=== PATIENT | female | born 1940 | race Caucasian/White ===

== ENCOUNTER → 2021-11-13 12:38 | Outpatient (BNVA) | payer MEDICARE, SELFPAY | PROVIDERS: Visit Provider Family Medicine | DX: R39.9 Unspecified symptoms and signs involving the genitourinary system (principal); N39.0 Urinary tract infection, site not specified | CPT/HCPCS: 81000 ==

== ENCOUNTER 2021-11-24 15:52 | Inpatient (IN) | payer MEDICARE, SELFPAY ==
[2021-11-24] VITALS (9 sets, daily range): BP systolic 99–131; BP diastolic 53–92; PULSE 108–177; RESP 17–33; TEMP 36.7; O2SAT 94–100; BMI 17.1
--- NOTE | 2021-11-24 16:27 | ED_ITS ---
HPI - General Adult General: Chief complaint: Psychiatric Symptoms Stated complaint: SI/ PSYCH EVAL Time Seen by Provider: 11/24/21 15:58 History of Present Illness: HPI: [81]yo patient with a history of insomnia presenting to the emergency room for concerns of worsening insomnia and statements of suicidal ideation. Patient was seen initially earlier by her nurse practitioner for insomnia however nurse procedure told patient that she is unable to prescribe her any Ambien. Patient was upset did not verbalize statements that she wanted to hurt her self and shortness of in the head with a gun. adult probation officer was involved and patient was brought to the emergency room. Arrival, patient was remorseful denies having any suicidal ideation. Patient tells me that she was exasperated and made statements that she did not mean. Patient says that she has 2 children and does not want to hurt herself. On arrival, the patient is AAOx3 and cooperative with my evaluation. No focal co mplaints of chest pain, shortness of breath, palpitations, N/V, focal GI/ complaints. Currently denies SI/HI. No complaints of hallucinations. Onset: chronic Duration: ongoing Location: home Severity: severe Associated symptoms: Deny chest pain, dyspnea, nausea, rash, palpitations or vomiting Review of Systems Const: Reports: fatigue and other (+insomnia); Denies: fever(s) or chills Eyes: Denies: change in vision ENMT: Denies: mouth pain Card: Denies: chest pain or palpitations Resp: Denies: dyspnea or non-productive cough GI: Denies: abdominal pain, nausea, vomiting or diarrhea : Denies: dysuria Musc: Denies: extremity pain Skin/Breast: Denies: rash or new lesions Neuro: Denies: weakness in extremities Psych: Reports: other (Normal mood) Scott/Lymph: Denies: easy bruising PFS ED PFSH: Medical History Insomnia Social History Smoking and tobacco status: former smoker Alcohol intake: never Substance/Drug Use: never Physical Exam Const: COMMON NORMALS: alert HENMT: COMMON NORMALS: atraumatic HEAD & SCALP: atraumatic MOUTH: moist mucous membranes not abnormal Eye: COMMON NORMALS: EOMs intact bilaterally and conjunctivae normal CONJUNCTIVA: Yes conjunctivae normal Neck/C-Spine: COMMON NORMALS: full ROM and supple Resp: COMMON NORMALS: normal respiratory effort and clear to auscultation bilaterally AUSCULTATION: clear to auscultation bilaterally Cardio: OTHER: tachycardia GI: COMMON NORMALS: Soft to palpation and non-tender PALPATION: Yes Soft to palpation Extremity: COMMON NORMALS: full ROM Neuro: SENSORIUM/ORIENTATION: Yes alert MOTOR EXAM: No Abnormal motor strength present and Other motor observations present (no focal motor deficits) Psych: COMMON NORMALS: speech normal SPEECH: Yes normal speech MOOD & AFFECT: Yes euthymic mood Course Vital Signs: Vital signs: Vital Signs Pulse Rate 109 H 11/24/21 18:22 Respiratory Rate 17 11/24/21 18:22 Blood Pressure 112/75 11/24/21 18:22 Pulse Oximetry 94 11/24/21 18:22 MDM - General Adult Medical Decision Making [81]yo patient w/ hx of insomnia for insomnia and requesting for ambien. HDS, exam within normal limit Thoughts are linear and organized, and the patient has no AH/VH, or HI. On arrival, patient is tearful and denies have any suicidal ideation at this time. Patient tells me that she is made those statements out of anger. Clinically the patient displays no overt toxidrome; they are well appearing, with low suspicion for toxic ingestion given history and exam. Symptoms unlikely 2/2 anemia, hypothyroidism, infection, or ICH. Workup: CBC, CMP, Lipase, salicylate/tylenol, TSH/free T4 On reassessment 4:40 PM, patient was noted to be in narrow complex tachycardia at to the 180s-190s. It is unclear whether this is regularly irregular. Given the fact the patient is 81 years old, suspect that this is SVT. We performed shared decision making with patient and discussed risk with patient. Patient received 6 mg adenosine x 2 followed by 12mg of adenosine with mild improvement in heart and heart rate. Patient was noted to be in atrial fibrillation with RVR in the 140s to 160. Patient received multiple doses of metoprolol, IVF, Ativan and Cardizem now with heart rate improved to the 90-110s. I discussed case with Dr. Dixon who tells me that he will reassess patient in the morning to make a determination whether patient needs Esther psych. Disposition: admission Lab Data : 11/24/21 17:39 11/24/21 17:39 Laboratory Results WBC 8.9 10^3/uL (4.0-10.0) 11/24/21 17:39 RBC 4.25 10^6/uL (4.1-5.3) 11/24/21 17:39 Hgb 13.1 g/dL (11.5-15.3) 11/24/21 17:39 Hct 39.9 % (37.0-47.0) 11/24/21 17:39 MCV 93.9 fl (81-99) 11/24/21 17:39 MCH 30.8 pg (28.0-34.0) 11/24/21 17:39 MCHC 32.8 g/dL (30.0-36.0) 11/24/21 17:39 RDW 13.2 % (12.1-15.1) 11/24/21 17:39 Plt Count 337 10^3/cmm (130-400) 11/24/21 17:39 MPV 11.0 fL (7.4-10.4) H 11/24/21 17:39 Neut % (Auto) 61.8 % 11/24/21 17:39 Lymph % (Auto) 18.2 % 11/24/21 17:39 [place] % (Auto) 13.1 % 11/24/21 17:39 Eos % (Auto) 3.7 % 11/24/21 17:39 Baso % (Auto) 0.9 % 11/24/21 17:39 Neut # (Auto) 5.48 10^3/uL (1.8-7.7) 11/24/21 17:39 Lymph # (Auto) 1.6 10^3/uL (0.8-4.8) 11/24/21 17:39 [place] # (Auto) 1.2 10^3/uL (0.2-0.9) H 11/24/21 17:39 Eos # (Auto) 0.3 10^3/uL (0.0-0.8) 11/24/21 17:39 Baso # (Auto) 0.1 10^3/uL (0.0-0.1) 11/24/21 17:39 Nucleated RBC % (auto) 0 % 11/24/21 17:39 Nucleated RBCs # 0.0 /100WBC 11/24/21 17:39 Potassium 4.2 mmol/L (3.5-5.1) 11/24/21 17:39 Chloride 100 mmol/L (98-107) 11/24/21 17:39 Carbon Dioxide 26 mmol/L (22-29) 11/24/21 17:39 Anion Gap 13.2 (5-19) 11/24/21 17:39 BUN 13 mg/dL (8-23) 11/24/21 17:39 Creatinine 0.5 mg/dL (0.5-0.9) 11/24/21 17:39 GFR Calculation Not Reportable 11/24/21 17:39 Glucose 124 mg/dL (65-115) H 11/24/21 17:39 Calculated Osmolality 282 mOsm/kg (285-295) L 11/24/21 17:39 Calcium 9.4 mg/dL (8.5-10.5) 11/24/21 17:39 Total Bilirubin 0.3 mg/dL (0.15-1.2) 11/24/21 17:39 AST 12 U/L (0-32) 11/24/21 17:39 ALT 14 U/L (0-33) 11/24/21 17:39 Alkaline Phosphatase 68 IU/L (35-105) 11/24/21 17:39 Troponin T Baseline 15 ng/L (0-10) H 11/24/21 17:39 Total Protein 6.1 g/dL (6.6-8.7) L 11/24/21 17:39 Albumin 3.3 g/dL (3.5-5.2) L 11/24/21 17:39 Globulin 2.8 g/dL (1.3-4.6) 11/24/21 17:39 Lipase 17 U/L (13-60) 11/24/21 17:39 TSH 2.15 uIU/mL (0.27-4.20) 11/24/21 17:39 Salicylates < 0.3 mg/dL (3-10) L 11/24/21 17:39 Acetaminophen < 5.0 ug/mL (10-30) L 11/24/21 17:39 Discharge Plan Discharge Patient Disposition: Admitted As Inpatient Clinical Impression: Insomnia, Atrial fibrillation with RVR Condition: Stable Discharge Diet: Advance as tolerated Discharge Activity: Increase activity as tolerated Coding Level of Care Code ED Residential Remodeling Subcontractor for Marlen Fwkevin Exam Comprehensive
[2021-11-24] MEDS: adenosine 3 mg/mL SDV 2mL 6 MG IVP ×2 (16:48→16:50)
--- NOTE | 2021-11-24 16:50 | PC.NURSE ---
pt placed on continuous nibp, spo2, and cm
[2021-11-24] MEDS: metoprolol tartrate 1 mg/1 mL SDV 5 mL 5 MG IVP ×2 (16:52→17:05)
[2021-11-24] MEDS: LORazepam 2 mg/mL INJ 1 mL IVP (16:55)
[2021-11-24] MEDS: adenosine 3 mg/mL SDV 2mL 12 MG IVP (16:56)
[2021-11-24] MEDS: metoprolol tartrate 50 mg Tablet PO (17:04)
[2021-11-24] MEDS: sodium chloride 0.9% 1,000 ML 999 ML IV (17:05)
--- NOTE | 2021-11-24 17:17 | ECG_ITS ---
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 Measurements Intervals [place] Rate: 191 P: MS: QRS: 83 QRSD: 77 T: 84 QT: 228 QTc: 407 Interpretive Statements ATRIAL FIBRILLATION WITH RAPID VENTRICULAR RESPONSE POSSIBLE RIGHT VENTRICULAR CONDUCTION DELAY [RSR (QR) IN V1/V2] SEPTAL MYOCARDIAL INFARCTION , OF INDETERMINATE AGE [40+ ms Q WAVE IN V1/V2] ST DEPRESSION, CONSIDER SUBENDOCARDIAL INJURY [0.1+ mV ST DEPRESSION] No previous ECG available for comparison Electronically Signed On 11-25-2021 17:33:00 CDT by Gage Moore M.D. [id number]
--- NOTE | 2021-11-24 17:19 | PC.NURSE ---
PT ARRIVED TO FACILITY. FAINA RN DOING TRIAGE ASSESSMENT. DURING THIS TIME PT'S HEART RATE WAS READING `190'S ON THE MONITOR. THIS NURSE AUSCULTATED PT'S PULSE AT POINT OF MAXIMAL IMPULSE. THIS NURSE IMMEDIATELY PERFORMED AN EKG TO CONFIRM. RESULTS GIVEN TO PHYSICIAN. PHYSICIAN CONFIRMED PT WAS IN SVT. PHYSICIAN GAVE VERBAL ORDERS TO GET 12MG OF ADENOSINE. TIME OUT CALLED AT 1645. 6MG ADENOSINE GIVEN AT 1648. PT HEART RATE DECREASED BUT THEN RESUMED SVT. 1650 PT GIVEN 6MG ADENOSINE. PT HEART RATE DECREASED BUT RESUMED SVT. 1652 PT GIVEN 5MG METOPROLOL. 1655 PT GIVEN 2MG ATIVAN. 1656 PT GIVEN 12MG ADENOSINE. PT HJEART RATE CURRENTLY 130 BP 116/53
[2021-11-24] MEDS: dilTIAZem 5 mg/mL SDV 5 mL 20 MG IVP (18:01)
[2021-11-24 18:22] LABS: Basophils # 0.1 10^3/uL (0.0-0.1); Basophils % 0.9 %; Eosinophils # 0.3 10^3/uL (0.0-0.8); Eosinophils % 3.7 %; Hematocrit 39.9 % (37.0-47.0); Hemoglobin 13.1 g/dL (11.5-15.3); Lymphocytes # 1.6 10^3/uL (0.8-4.8); Lymphocytes % 18.2 %; Mean Corpuscular HGB Conc 32.8 g/dL (30.0-36.0); Mean Corpuscular Hemoglobin 30.8 pg (28.0-34.0); Mean Corpuscular Volume 93.9 fl (81-99); Monocytes # 1.2 10^3/uL (0.2-0.9); Monocytes % 13.1 %; Neutrophils # 5.48 10^3/uL (1.8-7.7); Neutrophils % 61.8 %; Nucleated Red Blood Cells % 0 %; Platelet Count 337 10^3/cmm (130-400); Red Blood Count 4.25 10^6/uL (4.1-5.3); Red Cell Distribution Width 13.2 % (12.1-15.1); White Blood Count 8.9 10^3/uL (4.0-10.0)
[2021-11-24 18:53] LABS: Troponin(5th) Baseline 15 ng/L (0-10)
[2021-11-24 19:01] LABS: Alanine Aminotransferase 14 U/L (0-33); Albumin Level 3.3 g/dL (3.5-5.2); Alkaline Phosphatase 68 IU/L (35-105); Anion Gap 13.2 (5-19); Aspartate Amino Transferase 12 U/L (0-32); Blood Urea Nitrogen 13 mg/dL (8-23); Calcium 9.4 mg/dL (8.5-10.5); Carbon Dioxide 26 mmol/L (22-29); Chloride 100 mmol/L (98-107); Globulin 2.8 g/dL (1.3-4.6); Glucose 124 mg/dL (65-115); Lipase 17 U/L (13-60); Osmolality Calculated 282 mOsm/kg (285-295); Potassium 4.2 mmol/L (3.5-5.1); Thyroid Stimulating Hormone 2.15 uIU/mL (0.27-4.20); Total Bilirubin 0.3 mg/dL (0.15-1.2); Total Protein 6.1 g/dL (6.6-8.7)
[2021-11-24 19:04] LABS: Acetaminophen < 5.0 ug/mL (10-30); Salicylate < 0.3 mg/dL (3-10)
--- NOTE | 2021-11-24 19:04 | PC.NURSE ---
DR. COLUNGA GAVE VERBAL ORDERS TO DISCONTINUE/WASTE REMAINING 10MG OF 20MG ORDER OF CARDIZEM DUE TO PT CONDITION AND VITAL SIGNS.
--- NOTE | 2021-11-24 19:17 | ECG_ITS ---
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 Measurements Intervals [place] Rate: 109 P: ME: QRS: 92 QRSD: 92 T: 81 QT: 316 QTc: 426 Interpretive Statements ATRIAL FIBRILLATION WITH RAPID VENTRICULAR RESPONSE INDETERMINATE AXIS INCOMPLETE RIGHT BUNDLE BRANCH BLOCK [90+ ms QRS DURATION, TERMINAL R IN V1/V2, 40+ ms S IN I/aVL/V4/V5/V6] SEPTAL MYOCARDIAL INFARCTION , OF INDETERMINATE AGE [40+ ms Q WAVE IN V1/V2] No previous ECG available for comparison Electronically Signed On 11-25-2021 17:35:32 CDT by Gage Moore M.D. [id number]
[2021-11-24 20:58] LABS: Troponin 5 2HR 18.13 ng/L (0-10); Troponin 5 2HR Delta 3.13 ABS# (0-10)
[2021-11-24 21:31] LABS: Free T4 Free Thyroxine 1.37 ng/dL (0.82-1.77)
[2021-11-24 21:46] LABS: Sodium 135 mmol/L (136-145)
--- NOTE | 2021-11-24 21:59 | XRR_ITS ---
PROCEDURE INFORMATION: Exam: XR Chest Exam date and time: 11/24/2021 10:05 PM Age: 81 years old Clinical indication: Cardiovascular condition or disease; Congestive heart failure (chf); Cause unknown TECHNIQUE: Imaging protocol: Radiologic exam of the chest. Views: 1 view. COMPARISON: No relevant prior studies available. FINDINGS: Lungs: Left lower lobe focal airspace opacification may reflect atelectasis versus infiltrate, CT could further evaluate this to exclude an underlying mass. Emphysematous changes. Pleural spaces: Unremarkable. No pleural effusion. No pneumothorax. Heart/Mediastinum: Unremarkable. No cardiomegaly. Bones/joints: Unremarkable. XR/XR chest 1V portable [id number] IMPRESSION: 1. Left lower lobe focal airspace opacification may reflect atelectasis versus infiltrate, CT could further evaluate this to exclude an underlying mass. 2. Emphysematous changes.
--- NOTE | 2021-11-24 22:00 | PC.NURSE ---
Transfer Note Patient transferred to ICU from ER via stretcher on oxygen 2LNC, no wounds or skin issues noted at this time. Handoff received from VANESSA Jimenez. Patient oriented to environment and equipment. Covering service notified. Orders reviewed and will continue to monitor. Patient denies any thoughts of self harm/plan to commit suicide. Patient belongings include jacket, top, bra, skirt, socks, underwear and shoes placed at bedside. Patient wearing wedding ring on left hand upon arrival to ICU.
--- NOTE | 2021-11-24 22:04 | PM.HP ---
Providers/Chief Complaint Admitting Physician: Flakita Kraus MD Chief Complaint: SI/ PSYCH EVAL History of Present Illness Turner Badillo is a 81 year old female withoutsignificant PMH who presented to the ER after being brought by the police for tachycardia. Patient states that earlier today she went to her primary care provider's office to be evaluated for insomnia. She has been experiencing insomnia for about 1-1/2 to 2 years. States that this is primarily related to anxiety surrounding the world's events. Relates that over the past 2 years she has been worried about COVID, more recently mass shootings, overall corruption and state of the country and feels that this is why she has not been able to sleep. States that she gets no more than an hour of sleep every night. Does not take any daytime naps. She has tried lifestyle changes such as not drinking any tea or coffee or other energy drinks, does not watch TV, tries to read etc. however nothing seems to have helped her insomnia. She went to her primary care physician's office today with the above complaints and requested sleep medicine . Per her description she was declined short acting benzodiazepines and instead offered long-acting antidepressants due to concerns around her advanced age and risk of falls. She states that this last statement agitated her and she felt hopeless. To describe her hopelessness, she mentioned that she has thought about getting her 's gun and shooting herself since she cannot get any sleep. She states that immediately after she made the statement she regretted it as she is not truly suicidal. She states she was only trying to express her frustration. Police was called to the PCPs office and patient was sent to the emergency room. While in the police car her heart rate was noted to be 190 bpm. Upon arrival in the ER she was noted to have A. fib with RVR for which she received 2 doses of 6 mg adenosine, IV Cardizem pushes after which her heart rate has been ranging between 110 to 120 bpm. Patient states she had palpitations while she was in the police car. Denies any loss of consciousness or dizziness. Did have a central chest pressure at that time and found herself taking some deep breaths. She denies any past known history of atrial fibrillation. States that she has had central chest pressure but has attributed it to acid reflux in the past. Denies any dyspnea syncope PND. Denies any known past cardiac history. No history of hypertension diabetes. She is a smoker who quit several years ago. No history of alcohol intake in the last 5 years. No known hypo or hyperthyroidism. She uses Benadryl occasionally to help her sleep, however states she has not taken any in the last 48 hours. Denies any fever chills cough. Treated for a UTI 1 week ago with Macrobid. Currently has no symptoms of dysuria. Review of Systems General: Reports: 10 or more systems reviewed and unremarkable except in HPI and below Const: Denies: fever(s), chills or body aches Eyes: Denies: change in vision, blurry vision or photophobia ENMT: Reports: hoarseness; Denies: throat pain, enlarged tonsils, odynophagia or nasal congestion Card: Reports: palpitations; Denies: chest pain, irregular heart rhythm, edema, swelling of feet/ankles, lightheadedness, pre-syncope, dyspnea on exertion or orthopnea Resp: Denies: dyspnea, productive cough, non-productive cough, wheezing, stridor, pain on inspiration, change in phlegm color, hemoptysis or chest congestion GI: Denies: abdominal pain, nausea, vomiting, hematemesis, coffee ground emesis, dysphagia, heartburn, diarrhea, constipation, GI cramping, change in stool character, hematochezia or melena : Denies: flank pain, difficulty voiding, dysuria, urinary frequency, urinary urgency, urinary hesitancy or hematuria Musc: Denies: neck pain, back pain, extremity pain, joint swelling, joint warmth or deformity Neuro: Denies: headache(s), numbness in extremities, weakness in extremities, sensory changes, difficulty walking, frequent falls, dizziness, vertigo, behavioral changes, Slurred speech present or seizure-like activity Psych: Reports: anxiety; Denies: depression, suicidal ideation or homicidal ideation Endo: Denies: polyuria, polydipsia, tired all the time, cold intolerance or hot flashes Scott/Lymph: Denies: easy bruising or easy bleeding Medications/Allergies Home Medications Medication Instructions Recorded Confirmed Last Taken Type pcexclzzireb-bojwwpje-qpnvmv tablet 1 tab PO DAILY 11/24/21 11/24/21 11/24/21 History Allergies Allergy/AdvReac Type Severity Reaction Status Date / Time Penicillins Allergy ALGY-Rash Verified 11/24/21 18:29 PFSH Acute PFSH: Medical History Insomnia Social History Smoking and tobacco status: former smoker Alcohol intake: never Substance/Drug Use: never Vitals/I&O/Wt Last Vital Signs Pulse 108 H 11/24/21 21:31 Resp 21 H 11/24/21 21:31 BP 131/58 11/24/21 21:31 Pulse Ox 98 11/24/21 21:31 11/24/21 11/24/21 11/24/21 06:59 14:59 22:59 Intake Total 1000 / 1000 Balance 1000 / 1000 Physical Exam Narrative: GEN: Awake, alert and oriented, no acute distress CVS: S1S2 N RS: CTA B/L Abd: Soft, nt/nd , bs+ 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 Currently on a 96 hr hold. 1:1 sitter at bedside. Psych consult placed from ER, will await recommendations Attestations Medical Necessity Statement*: anticipate >2midnight admission for SI, psychiatry assessment, 96 hr hold, A fib with RVR new onset, rate control Coding Level of Care Code Acute Director Telemetry for Chg Fwd Diagnoses Atrial fibrillation with RVR I48.91 Insomnia G47.00
[2021-11-24] MEDS: dilTIAZem 30 mg Tablet PO (22:30)
[2021-11-24] MEDS: enoxaparin 40 mg/0.4 mL Syringe SUBCUT (22:31)
[2021-11-24 22:35] LABS: Magnesium 1.9 mg/dL (1.7-2.3); NT Pro B Type Natriuretic Pept 1760 pg/mL (0-450)
--- NOTE | 2021-11-25 00:14 | PC.NURSE ---
New Orders Dr. Kraus at bedside, gave verbal orders to administer Xanax 0.25mg PO ONCE.
[2021-11-25] MEDS: ALPRAZolam 0.5 mg Tablet 0.25 MG PO (00:52)
--- NOTE | 2021-11-25 01:34 | USCV_ITS ---
Turner Badillo Age: 81 Gender: F : 1940 Exam Date: 11/25/2021 01:48 Ordering Phys: Flakita Kraus MD Technologist: JAY Exam Location: [facility] [place] Indication: new onset atrial fibrillation. No hx cardiac intervention per patient. BP: 105 / 75 HR: 100 Rhythm: Atrial fibrillation Technical Quality: Adequate MEASUREMENTS (Male / Female) Normal Values 2D ECHO LV Diastolic Diameter PLAX 4.1 cm 4.2 - 5.9 / 3.9 - 5.3 cm LV Systolic Diameter PLAX 2.5 cm IVS Diastolic Thickness 1.0 cm 0.6 - 1.0 / 0.6 - 0.9 cm IVS Systolic Thickness 1.6 cm LVPW Diastolic Thickness 1.3 cm 0.6 - 1.0 / 0.6 - 0.9 cm LVPW Systolic Thickness 1.5 cm LVOT Diameter 1.7 cm LV Ejection Fraction 2D Teich 69.8 % LV Ejection Fraction MOD 2C 67.4 % LV Ejection Fraction 2C AL 67.2 % LA Diameter 4.2 cm LA Width 4.7 cm LA Height 6.0 cm RA Width 4.7 cm RA Height 5.8 cm Aorta at Sinotubular Diameter 3.0 cm M-MODE Aortic Annulus Diameter 2.9 cm LA Ao Ratio MM 1.5 MV E Point Septal Separation 0.6 cm DOPPLER AV Peak Velocity 114.0 cm/s LVOT Peak Velocity 65.0 cm/s AV Area Cont Eq vti 1.3 cm squared AV Area Cont Eq pk 1.3 cm squared MV Area PHT 5.0 cm squared MV E' Velocity 44.0 cm/s Mitral E to MV E' Ratio 16.5 Mitral E to LV E' Lateral Ratio 21.0 Mitral E to LV E' Septal Ratio 13.8 TR Peak Velocity 227.6 cm/s TR Peak Gradient 20.7 mmHg TV Peak E Velocity 53.0 cm/s Right Atrial Pressure 5.0 mmHg Pulmonary Artery Systolic Pressu 25.7 mmHg PV Peak Velocity 71.0 cm/s FINDINGS Left Ventricle Normal left ventricular size. LV systolic function is mildly reduced with EF of 45-50%. Mild global hypokinesis. Diastolic function is indeterminate because of atrial fibrillation. Right Ventricle The right ventricle is normal in size and function. Right Atrium The right atrium is dilated Left Atrium The left atrium is dilated Mitral Valve Mild mitral annular calcification. Mild mitral regurgitation. Aortic Valve Structurally normal aortic valve without significant sclerosis or stenosis. There is mild to moderate aortic regurgitation. Tricuspid Valve Structurally normal tricuspid valve without significant stenosis. Mild tricuspid regurgitation. Pulmonary artery systolic pressure is normal. Pulmonic Valve Trace pulmonic regurgitation Pericardium Small pericardial effusion Aorta Normal ascending aorta dimension. IVC CONCLUSIONS LV systolic function is mildly reduced with EF 45-50%. Diastolic function is indeterminate because of atrial fibrillation. Biatrial enlargement Mild mitral annular calcification is seen. Mild mitral regurgitation. Mild to moderate aortic regurgitation. Mild tricuspid regurgitation. Trace pulmonic regurgitation Small pericardial effusion No comparison studies are available Gage Moore MD (Electronically Signed) Final Date: 25 November 2021 11:07 S
[2021-11-25 02:24] LABS: D Dimer 1.56 ug/mIFEU (0-0.59)
[2021-11-25 02:30] LABS: Alanine Aminotransferase 19 U/L (0-33); Alkaline Phosphatase 63 IU/L (35-105); Anion Gap 11.9 (5-19); Aspartate Amino Transferase 18 U/L (0-32); Blood Urea Nitrogen 12 mg/dL (8-23); Calcium 8.8 mg/dL (8.5-10.5); Carbon Dioxide 23 mmol/L (22-29); Chloride 101 mmol/L (98-107); Globulin 2.6 g/dL (1.3-4.6); Glucose 126 mg/dL (65-115); Osmolality Calculated 275 mOsm/kg (285-295); Potassium 3.9 mmol/L (3.5-5.1); Sodium 132 mmol/L (136-145); Total Bilirubin 0.3 mg/dL (0.15-1.2); Total Protein 5.6 g/dL (6.6-8.7)
[2021-11-25] MEDS: dilTIAZem 30 mg Tablet PO ×2 (05:22→09:06)
--- NOTE | 2021-11-25 05:55 | PC.NURSE ---
Shift Summary Patient had an uneventful shift-rested in bed throughout the night and remains alert/oriented x4 on room air. No wounds or skin issues noted at this time. No complaints of brooks overnight. Ambulated to bathroom once with nurse assist. Patient continues to deny any feelings and/or thoughts of self harm.
[2021-11-25 06:00] VITALS: PULSE 108; BMI 16.9
[2021-11-25] MEDS: pantoprazole DR 40 mg Tablet PO (09:05)
[2021-11-25] MEDS: FUROsemide 20 mg Tablet PO (10:29)
[2021-11-25] MEDS: escitalopram 10 mg Tablet PO (10:29)
[2021-11-25] MEDS: potassium chloride ER 20 mEq Tablet 40 MEQ PO (10:30)
[2021-11-25 10:52] LABS: Amphetamines Screen Urine Negative (Negative); Barbiturates Screen Urine Negative (Negative); Benzodiazepines Screen Urine Positive (Negative); Cocaine Screen Urine Negative (Negative); Opiate Screen Urine Negative (Negative); PCP Screen Urine Negative (Negative); THC Screen Urine Positive (Negative)
[2021-11-25 12:21] LABS: Chol HDL Ratio 5.31 mg/dL (0.0-4.40); Cholesterol 138 mg/dL (0-200); HDL Cholesterol 26 mg/dL (60-100); LDL Cholesterol Calculated 97 mg/dL (50-129); Triglycerides 76 mg/dL (0-150); VLDL Cholestrol Calculation 15 mg/dL (0-30)
[2021-11-25 12:25] LABS: Estmated Average Glucose 143; Hemoglobin A1C 6.6 % (4.0-6.0)
[2021-11-25 12:28] LABS: Urine Appearance SL Hazy (CLEAR); Urine Color Yellow (Yellow)
[2021-11-25 12:29] LABS: Add Urine Culture? Yes; Add Urine Microscopic? YES; Bacteria Urine 4+ /hpf; Bilirubin Urine Neg (Negative); Blood Urine Neg (Negative); Glucose Urine UA Norm (Normal); Ketones Urine Negative (Negative); Leukocyte Esterase Urine Negative (Negative); Nitrate Urine Positive (Negative); Protein Urine Neg (Negative); RBC Urine 0-4 /hpf (0-2); Squamous Epithelial Cell Urine 0-4 /hpf (0-5); Urobilinogen Urine Norm (Negative); WBC Urine 0-4 /hpf (0-5); pH Urine 6 (5-7)
[2021-11-25 14:00] VITALS: PULSE 97
--- NOTE | 2021-11-25 14:39 | P.PN_ITS ---
Subjective Subjective: Admitted overnight. H&P and labs appreciated. On examination sleeping comfortably in bed. States she had a good night sleep. at bedside. Patient denies any suicidal or homicidal ideation. States she made the statement yesterday to her nurse practitioner because she was frustrated and irritated. States she lives with her 2 children and will never think of harming herself. Denies any nausea, vomiting, headache. As per and patient herself she has been anxious about COVID for over 2 years but worsening for last 5 to 6 months. 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 fib. Cardizem 60 mg every 8 hourly. TSH normal. Jagdeep vas score?4. Patient needs anticoagulation for stroke prevention. Discussed in detail. Patient thinks that she is in A. fib because she was anxious. She is open to the idea of anticoagulation but for now wants to confirm that she has persistent A. fib. Discussed possible need of event monitor as an outpatient. Patient is agreeable. Status: Acute (2) Cardiomyopathy: Echocardiogram done shows an EF of 40 to 45% with global LV hypokinesia, mild MR, mild to moderate aortic regurgitation, mild TR. Etiology most likely nonischemic but cannot rule out ischemic etiology for now. Patient will need a Lexiscan stress test. N.p.o. after midnight. Check A1c, lipid panel. Status: Acute (3) Systolic heart failure: Slightly decompensated. Check proBNP. Oral Lasix 20 mg once. Oral potassium 40 mEq. Strict input output charting. Status: Acute (4) Insomnia: Ambien 5 mg as needed. Status: Acute (5) Anxiety: As per patient chronic. Denies any suicidal or homicidal ideation. Agreeable to start on SSRI. Start on Lexapro 10 mg daily. Status: Acute Plan Suicidal ideation: events as noted above. Currently on a 96 hr hold as per ER on admission. Awaiting psychiatry evaluation. One-to-one sitter. Currently denies any suicidal or homicidal ideation. Full code. Cardiac diet. Protonix for PUD prophylaxis. Lovenox for DVT prophylaxis. Attestations Medical Necessity Statement*: Requires further hospitalization for management and further evaluation of atrial fibrillation with rapid ventricular response, cardiomyopathy, acute systolic heart failure, 96-hour hold because of possible suicidal ideation while psychiatric evaluation is awaited. Time Spent in Patient Care: Greater than 35 minutes Coding Level of Care Code Acute Supervisor [employer] for Marlen Richard Diagnoses Atrial fibrillation with RVR I48.91 Insomnia G47.00 Anxiety F41.9 Systolic heart failure I50.20 Cardiomyopathy I42.9
[2021-11-25] MEDS: dilTIAZem 60 mg Tablet PO ×2 (15:20→21:12)
--- NOTE | 2021-11-25 16:33 | PC.NURSE ---
Pt was seen by Dr. Salinas and he told this nurse that 1:1 orders could be discontinued. This was discussed with Dr. Duran and 1:1 order was changed. Pt has not had suicidal ideations this shift.
--- NOTE | 2021-11-25 17:35 | W.PM.PSYCONS ---
Providers/Reason for Consult Consulting Physican/Specialty*: Jai Salinas MD Reason for Consult*: anxiety Attending Physician: Prasanna Duran MD Psych Consult HPI History of Present Illness Turner Badillo is a 81 year old female admitted for atrial fibrillation and reports that she inappropriately had made statement of hurting herself if she did not get any sleep improvement. She endorsed sleep continuity disruption for 1 1/2 years and reports that she has been upset and anxious about the problems of the world, recent [place] events, recent legal events. Patient reports no depressed mood. She reports no past or current history of depression. She reports improved sleep last night. Meds Home Medications and Allergies Home Medications Medication Instructions Recorded Confirmed Last Taken Type pczgclqydwaw-rtulggwu-fwcfsl tablet 1 tab PO DAILY 11/24/21 11/24/21 11/24/21 History Allergies Allergy/AdvReac Type Severity Reaction Status Date / Time Penicillins Allergy ALGY-Rash Verified 11/24/21 18:29 Current Medications Current Medications Generic Name Dose Route Start Last Admin Trade Name Josep PRN Reason Stop Dose Admin Diltiazem HCl 60 mg 11/25/21 15:00 11/25/21 15:20 Diltiazem 60 Mg Tablet PO 60 mg TID DEWEY Administration Enoxaparin Sodium 40 mg 11/24/21 22:00 11/24/21 22:31 Enoxaparin 40 Mg/0.4 Ml Syringe SUBCUT 40 mg Q24H DEWEY Administration Escitalopram Oxalate 10 mg 11/25/21 10:25 11/25/21 10:29 Escitalopram 10 Mg Tablet PO 10 mg DAILY DEWEY Administration Pantoprazole Sodium 40 mg 11/25/21 09:00 11/25/21 09:[address] 40 Mg Tablet PO 40 mg DAILY DEWEY Administration PFSH NPU PFSH: Medical History Insomnia Social History Smoking and tobacco status: former smoker Alcohol intake: never Substance/Drug Use: never Mental Status Exam MSE Comments: She is a casually dressed pleasant white female good eye contact appeared her stated age her mood was described as okay her affect was normal in regards to range her thought process was linear logical. Her thought content showed no evidence of active homicidal or suicidal ideation she did not appear to be responding to internal stimuli there is no evidence of delusional thinking. Her attention span appeared fair her insight was partial. her judgment was fair at this time Vitals/I&O/Wt Last Vital Signs Temp 98.0 F 11/24/21 22:17 Pulse 97 11/25/21 14:00 Resp 33 H 11/24/21 22:17 BP 124/92 11/24/21 22:17 Pulse Ox 100 11/24/21 22:17 11/25/21 11/25/21 11/25/21 06:59 14:59 22:59 Intake Total 200 / 1200 600 / 600 Balance 200 / 1200 600 / 600 Weight last 48 hrs Weight 47.627 kg Weight 48.166 kg Data NPU : 11/24/21 17:39 11/25/21 01:45 A&P Assessment and plan (1) Anxiety: Status: Acute (2) Systolic heart failure: Status: Acute (3) Cardiomyopathy: Status: Acute (4) Atrial fibrillation with RVR: Status: Acute (5) Insomnia: Status: Acute Plan 1. Recommend CBT for insomnia, no side effects. 2. Recommend use of lexapro as prescribed as decrease in overall anxiety may indirectly aid in her chronic insomnia 3. Recommend compliance with medications for her AF as this may also indirectly improve her problems with insomnia 4. She may benefit initially from low dose ambien 2.5mg/5mg for a small period of time on outpatient basis, reiterated to patient that this is not intended for technician terminal and repeater use. Attestations NPU Medical Necessity Statement*: Continue medical treatment, no need for further psychiatric input. Discharge home when stable Coding Level of Care Code Established Pt Acute Actuarial Trainee for Chg Fwd Patient Type Established History Problem Focused Exam Problem Focused Medical Decision Making Straight Forward Diagnoses Anxiety F41.9 Systolic heart failure I50.20 Cardiomyopathy I42.9 Atrial fibrillation with RVR I48.91 Insomnia G47.00
[2021-11-25 20:00] VITALS: PULSE 91; O2SAT 91
[2021-11-25] MEDS: enoxaparin 40 mg/0.4 mL Syringe SUBCUT (21:12)
[2021-11-25] MEDS: zolpidem 5 mg Tablet PO (21:12)
[2021-11-25 22:00] VITALS: PULSE 96
[2021-11-26 05:14] LABS: Alanine Aminotransferase 17 U/L (0-33); Alkaline Phosphatase 63 IU/L (35-105); Anion Gap 15.6 (5-19); Aspartate Amino Transferase 15 U/L (0-32); Blood Urea Nitrogen 14 mg/dL (8-23); Calcium 8.5 mg/dL (8.5-10.5); Carbon Dioxide 23 mmol/L (22-29); Chloride 102 mmol/L (98-107); Globulin 2.8 g/dL (1.3-4.6); Glucose 107 mg/dL (65-115); Osmolality Calculated 283 mOsm/kg (285-295); Potassium 4.6 mmol/L (3.5-5.1); Sodium 136 mmol/L (136-145); Total Bilirubin 0.4 mg/dL (0.15-1.2); Total Protein 5.8 g/dL (6.6-8.7)
[2021-11-26 06:00] VITALS: PULSE 117
--- NOTE | 2021-11-26 06:55 | PC.NURSE ---
Shift Summary Patient had an uneventful shift, remains alert/oriented on room air. No complaints of pain overnight. Patient ambulates to bathroom with standby assist. No wounds/skin issues noted at this time.
[2021-11-26 07:24] VITALS: BP 103/89; PULSE 117; RESP 18; TEMP 37.1
[2021-11-26] MEDS: pantoprazole DR 40 mg Tablet PO (08:44)
[2021-11-26] MEDS: dilTIAZem 60 mg Tablet PO ×4 (08:44→23:40)
[2021-11-26] MEDS: escitalopram 10 mg Tablet PO (08:44)
--- NOTE | 2021-11-26 10:33 | PC.CHAP ---
Pastoral Care Encounter/Spiritual Assessment Type of Contact [] Declined director news visit [] Patient/Family/Request visit [] Outpatient visit [] Follow-up visit [] Physician referral [] Code/Alert [x] Routine visit [] Staff referral [] Actively dying [] Patient sleeping [x] Family support [] [] Out of room [] Palliative care [] [] Receiving care in room [] Pre-surgical visit [] Trauma [] Long length of stay [x] ICU visit [x] Other: Anglican.. prayed outside of room Relational/Emotional Strength [] Patient feels connected with others/family/visitors/staff [] Distress [] Loneliness/isolation [] Abandonment Spirituality of Patient [] Person of Elaina [] Attends Jehovah'S Witness of their Elaina [] Believes in Prayer [] Reads Bible or Mandaen materials [] There are Spiritual issues to be addressed Clinical Psychology Professor Interventions [x] Prayer [] Active listening [] Non-anxious presence [] Spiritual/emotional support [] Crisis/trauma care [] Spiritual counseling [] Bereavement support [] Provided bereavement packet [] Provided Bible/devotional materials [] Provided toy/stuffed animal, coloring book to patient or family member [] Provided Communion [] Anointing/[employer] [] Salvation [x] Completed spiritual assessment [] Other: Impact on Illness or Injury [] Angry [] Fearful [] Anxious [] Often cries [] Exhaustion [] Unable to work [] Unable to attend jehovah's witness [] Unable to walk/stand [] Unable to read [] Unable to drive [] Unable to eat/drink [] Unable to sleep [] Unable to be with family [] Patient intubated [] Other: Summary Time spent with patient
[2021-11-26] MEDS: levoFLOXacin 500 mg Tablet PO (10:34)
--- NOTE | 2021-11-26 13:48 | P.PN_ITS ---
Subjective Subjective: Overnight patient's heart rate has remained more than 100. Today morning at rest patient's heart rate has been ranging between 110-125 bpm. She states she slept overnight but not as good as first night. Denies any nausea, vomiting, headache. Today she tells me she has been having occasional re trosternal chest heaviness and pain even at home on minimal exertion occasionally. She is not able to differentiate if it is due to his chest heaviness or chest palpitations. 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 fib. Cardizem 60 mg every 8 hourly. TSH normal. Jagdeep vas score?4. Patient needs anticoagulation for stroke prevention. Discussed in detail. Patient thinks that she is in A. fib because she was anxious. She is open to the idea of anticoagulation but for now wants to c onfirm that she has persistent A. fib. Discussed possible need of event monitor as an outpatient. Patient is agreeable. Status: Acute (2) Cardiomyopathy: Echocardiogram done shows an EF of 40 to 45% with global LV hypokinesia, mild MR, mild to moderate aortic regurgitation, mild TR. Etiology most likely nonischemic but cannot rule out ischemic etiology for now. Patient will need a Lexiscan stress test. N.p.o. after midnight. Check A1c, lipid panel. Status: Acute (3) Systolic heart failure: Slightly decompensated. Check proBNP. Oral Lasix 20 mg once. Oral potassium 40 mEq. Strict input output charting. Status: Acute (4) Insomnia: Ambien 5 mg as needed. Status: Acute (5) Anxiety: As per patient chronic. Denies any suicidal or homicidal ideation. Agreeable to start on SSRI. Start on Lexapro 10 mg daily. Status: Acute Plan Suicidal ideation: events as noted above. Currently on a 96 hr hold as per ER on admission. Awaiting psychiatry evaluation. One-to-one sitter. Currently denies any suicidal or homicidal ideation. Full code. Cardiac diet. Protonix for PUD prophylaxis. Lovenox for DVT prophylaxis. Plan for the day: Increase Cardizem to 60 mg every 6. If heart rate remains more than 110 can give 10 mg IV push. Will dose Cardizem accordingly. Continue with Lexapro. Start on Xanax 0.5 at bedtime scheduled. Plan for Lexiscan tomorrow morning. N.p.o. after midnight. Follow-up urine culture. For now start on Levaquin 500 mg daily for 5 days. Discussed in detail with patient and patient's at bedside. They are both agreeable. 96-hour removed. Appreciate psychiatry recommendations. No active suicidal or homicidal ideation. Transfer to CSU. Attestations Medical Necessity Statement*: Requires further hospitalization for management of A. fib with RVR, cardiomyopathy while etiology is determined. Time Spent in Patient Care: Greater than 35 minutes Coding Level of Care Code Acute Pattern Stamper for [facility] Fwkevin Diagnoses Atrial fibrillation with RVR I48.91 Cardiomyopathy I42.9 Systolic heart failure I50.20 Insomnia G47.00 Anxiety F41.9
[2021-11-26] MEDS: ondansetron 2 mg/ML SDV 2 mL 4 MG IVP (16:24)
[2021-11-26 19:46] VITALS: BP 102/59; PULSE 118; RESP 20; TEMP 36.7; O2SAT 93
[2021-11-26 22:00] VITALS: PULSE 71
--- NOTE | 2021-11-26 22:15 | PC.NURSE ---
Xanax and Metoprolol Patient's blood pressure MAP ranging from 65-66, current blood pressure 100/55 MAP 66 with a HR ranging from 80s-110s. Cardizem scheduled Q6hr, new 25 mg metoprolol PO dose due at 2100. Dr. rKaus contacted and order received to give cardizem as scheduled and to hold metoprolol. Medication held. Patient requested to have xanax bedtime dose closer to 2230 to help her rest throughout night. Receiving nurse aware of request.
[2021-11-26] MEDS: enoxaparin 40 mg/0.4 mL Syringe SUBCUT (22:21)
[2021-11-26 22:38] VITALS: BP 100/55; PULSE 88; RESP 20
[2021-11-26] MEDS: ALPRAZolam 0.5 mg Tablet PO (22:38)
--- NOTE | 2021-11-26 22:41 | PC.NURSE ---
Transfer Patient transferred to CSU bed 277-1 via wheelchair. All patient belongings placed at bedside after transfer. Receiving nurse in room and all vitals stable.
[2021-11-27] VITALS: BP 102/59; PULSE 94; RESP 16; TEMP 36.7; O2SAT 93
[2021-11-27 00:13] VITALS: PULSE 83
--- NOTE | 2021-11-27 05:22 | PC.NURSE ---
patient refusing morning meds at this time stating, I am an old lady and just want to sleep in this morning.
--- NOTE | 2021-11-27 06:03 | PC.NURSE ---
Patient very upset that she has had to share a room with another patient this night. Patient stated, I am checking myself out today. Patient is upset about the roommates bipap continuously alarming.
[2021-11-27 06:35] VITALS: PULSE 0
--- NOTE | 2021-11-27 07:34 | PC.NURSE ---
pt off floor for stress test
[2021-11-27 07:35] LABS: Basophils # 0.1 10^3/uL (0.0-0.1); Basophils % 0.9 %; Eosinophils # 0.3 10^3/uL (0.0-0.8); Eosinophils % 3.3 %; Hematocrit 35.6 % (37.0-47.0); Hemoglobin 11.9 g/dL (11.5-15.3); Lymphocytes # 1.4 10^3/uL (0.8-4.8); Lymphocytes % 18.6 %; Mean Corpuscular HGB Conc 33.4 g/dL (30.0-36.0); Mean Corpuscular Hemoglobin 31.2 pg (28.0-34.0); Mean Corpuscular Volume 93.2 fl (81-99); Mean Platelet Volume 11.6 fL (7.4-10.4); Monocytes % 13.4 %; Neutrophils % 61.7 %; Nucleated Red Blood Cells % 0 %; Platelet Count 245 10^3/cmm (130-400); Red Blood Count 3.82 10^6/uL (4.1-5.3); Red Cell Distribution Width 13.2 % (12.1-15.1); White Blood Count 7.5 10^3/uL (4.0-10.0)
[2021-11-27 07:51] LABS: Alanine Aminotransferase 16 U/L (0-33); Albumin Level 3.3 g/dL (3.5-5.2); Alkaline Phosphatase 70 IU/L (35-105); Aspartate Amino Transferase 13 U/L (0-32); Blood Urea Nitrogen 10 mg/dL (8-23); Calcium 8.6 mg/dL (8.5-10.5); Carbon Dioxide 24 mmol/L (22-29); Chloride 100 mmol/L (98-107); Globulin 2.6 g/dL (1.3-4.6); Glucose 107 mg/dL (65-115); Osmolality Calculated 282 mOsm/kg (285-295); Sodium 136 mmol/L (136-145); Total Bilirubin 0.3 mg/dL (0.15-1.2); Total Protein 5.9 g/dL (6.6-8.7)
--- NOTE | 2021-11-27 07:54 | ECG_ITS ---
[facility] Test Date: 2021-11-27 Pat Name: Turner Badillo Department: Room: 277 Gender: Female Major Assembler: Zoila Marquez : 1940 Requested By: Prasanna Duran Order Number: [id number] Nelly MD: Gage Moore M.D. Interpretive Statements NAME OF STUDY: LEXISCAN SESTAMIBI STRESS TEST INDICATION: [Chest Pain, ] Procedure: At the baseline, the blood pressure was 103/58 mmHg with a heart rate of 124 bpm. The electrocardiogram showed atrial fibrillation with RVR. No significant ST-T wave changes. The Lexiscan was infused over a period of 20 seconds. A total of 0.4 mg of Lexiscan was infused. The stress phase was continued for a total of 5 minutes. Heart rate was at the end of stress phase was 115 bpm and a blood pressure of 108/56 mmHg. The EKG at the peak infusion revealed atrial fibrillation with RVR. No significant ST-T wave changes. Sestamibi was injected 20 seconds after the Lexiscan infusion. Blood pressure at the end of recovery phase was 103/56 mmHg with a heart rate of 127 bpm. Conclusion: 1. Normal EKG response to Lexiscan infusion 2. No Lexiscan induced chest pain or cardiac arrhythmia. 3. Normal blood pressure and heart rate response. 4. Sestamibi/sestamibi perfusion scan pending; see separate report. Electronically Signed On 12-06-2021 12:30:56 CDT by Gage Moore M.D. [id number]
[2021-11-27] MEDS: regadenoson 0.4 Mg/5 ml Syringe IVP (08:04)
[2021-11-27 08:05] VITALS: BP 108/56; PULSE 115
--- NOTE | 2021-11-27 09:09 | NMCV_ITS ---
NM farnaz perf SPECT r/s* [id number] Turner Badillo Age: 81 Gender: F : 1940 Exam Date: 11/27/2021 07:14 Ordering Phys: Prasanna Duran MD Technologist: CARSON Lance Exam Location: [facility] Indications: CHEST PAIN STRESS TEST Please see separate stress test report in [facility] for full findings IMAGE PROTOCOL Rest/Stress 1 Radiopharmaceutical Dose (mCi) Administration Site Administered by Rest: Tc-99m 10.9 IV CARSON Early Sestamiisela Stress:Tc-99m 32.6 IV CARSON Early Sestamiisela Rest: 27-Nov-2021 60 Discovery 630 Stress: 27-Nov-2021 30 Discovery 630 Images obtained in supine and prone position. Images obtained in supine and prone position. SPECT RESULTS Technical Quality: Excellent Raw Data Analysis: Normal Image Corrections: No attenuation or motion correction applied Summed Stress Score: 1 Summed Rest Score: 3 Summed Difference Score: 1 PERFUSION FINDINGS There is a small sized perfusion defect noted in the apical wall that improves on stress images. This is likely secondary to attenuation artifact. FUNCTIONAL RESULTS (calculated via Gated SPECT) Stress Image LV EF (%): 67 Stress EDV (mL):55 TID: 0.97 Stress ESV (mL):18 FUNCTIONAL FINDINGS: There is normal left ventricular systolic function. IMPRESSIONS 1. Normal myocardial perfusion imaging. No evidence of ischemia. Attenuation artifact is seen in the apical wall 2. LV systolic function is normal Gage Moore MD (Electronically Signed) Final Date: 27 November 2021 09:51 S
--- NOTE | 2021-11-27 09:37 | PC.NURSE ---
contacted provider with concerns of blood pressure and medication to be given at this time instructions to stop metoprolol and give cardizem now received
[2021-11-27] MEDS: levoFLOXacin 500 mg Tablet PO (09:41)
[2021-11-27] MEDS: escitalopram 10 mg Tablet PO (09:41)
[2021-11-27] MEDS: dilTIAZem 60 mg Tablet PO ×2 (09:43→11:47)
[2021-11-27 11:20] VITALS: BP 91/59; PULSE 118; RESP 18; TEMP 36.7; O2SAT 96
--- NOTE | 2021-11-27 12:33 | PM.DCS ---
Discharge Providers Date of Admission: 11/24/21 19:19 Date of Discharge: November 27, 2021 Attending Provider at Admission: Flakita Kraus MD Attending Provider at Discharge: Prasanna Duran MD Consults: Psychiatric: Dr. Salinas Diagnoses at Discharge Discharge Diagnosis (1) Atrial fibrillation with RVR: Status: Acute (2) Cardiomyopathy: Status: Acute (3) Systolic heart failure: Status: Acute (4) Insomnia: Status: Acute (5) Anxiety: Status: Acute Reason for Visit Reason for Visit: SI/ PSYCH EVAL Brief History: History as per HPI: Turner Badillo is a 81 year old female withoutsignificant PMH who presented to the ER after being brought by the police for tachycardia. Patient states that earlier today she went to her primary care provider's office to be evaluated for insomnia.? She has been experiencing insomnia for about 1-1/2 to 2 years.? States that this is primarily related to anxiety surrounding the world's events.? Relates that over the past 2 years she has been worried about COVID, more recently mass shootings, overall corruption and state of the country and feels that this is why she has not been able to sleep.? States that she gets no more than an hour of sleep every night.? Does not take any daytime naps.? She has tried lifestyle changes such as not drinking any tea or coffee or other energy drinks, does not watch TV, tries to read etc. however nothing seems to have helped her insomnia.? She went to her primary care physician's office today with the above complaints and requested sleep medicine .? Per her description she was declined short acting benzodiazepines and instead offered long-acting antidepressants due to concerns around her advanced age and risk of falls.? She states that this last statement agitated her and she felt hopeless.? To describe her hopelessness, she mentioned that she has thought about getting her 's gun and shooting herself since she cannot get any sleep.? She states that immediately after she made the statement she regretted it as she is not truly suicidal.? She states she was only trying to express her frustration. Police was called to the PCPs office and patient was sent to the emergency room.? While in the police car her heart rate was noted to be 190 bpm.? Upon arrival in the ER she was noted to have A. fib with RVR for which she received 2 doses of 6 mg adenosine, IV Cardizem pushes after which her heart rate has been ranging between 110 to 120 bpm.? Patient states she had palpitations while she was in the police car.? Denies any loss of consciousness or dizziness.? Did have a central chest pressure at that time and found herself taking some deep breaths.? She denies any past known history of atrial fibrillation.? States that she has had central chest pressure but has attributed it to acid reflux in the past.? Denies any dyspnea syncope PND.? Denies any known past cardiac history.? No history of hypertension diabetes.? She is a smoker who quit several years ago.? No history of alcohol intake in the last 5 years.? No known hypo or hyperthyroidism.? She uses Benadryl occasionally to help her sleep, however states she has not taken any in the last 48 hours. Denies any fever chills cough.? Treated for a UTI 1 week ago with Macrobid.? Currently has no symptoms of dysuria. Hospital Course Hospital Course Patient was admitted to the ICU with one-to-one observation under 96-hour hold for a possibility of suicidal ideation. On admission she was found to be in atrial fibrillation with rapid ventricular response which was treated with IV Cardizem and transitioned over to oral. Psychiatry was consulted who ruled out any active suicidal or homicidal ideation after which 96-hour hold was withdrawn. During hospitalization patient remained at baseline mentation without any agitation but did have episodes of anxiety for which she was started on Lexapro along with Ambien on as needed nightly basis. Echocardiogram was done which showed a new low EF of around 45%. She underwent Lexiscan stress test on 11/27 to rule out ischemic etiology. For atrial fibrillation she was transitioned over to oral 1 time daily medication. Need and benefits of anticoagulation were discussed in detail. At first patient was hesitant for starting of anticoagulation but later was agreeable so is been discharged on Eliquis 5 mg twice daily. She has been discharged hemodynamically stable condition on oral Cardizem 10 mg once daily, Eliquis 5 mg twice daily, Lexapro 10 mg daily and zolpidem 5 mg as needed nightly for insomnia. She is advised to follow-up with her primary care provider within next 2 weeks and with behavioral health clinic for further continuation of anxiety medications. Plan was discussed in detail with patient and her at bedside. All the questions were answered. Physical Exam Narrative: GEN: Awake, alert and oriented, no acute distress, slightly anxious CVS: S1S2 N RS: CTA B/L Abd: Soft, nt/nd , bs+ CREDIT VERIFICATION CLERK: no focal neuro deficits EXT: no edema clubbing or cyanosis Discharge Data Studies Completed and Pending Completed Studies During Hospitalization Category Date Time Status Cardiac Stress Test MIBI [Sestamibi Stress Test Request Exams 11/27/21 07:54 Draft ] Routine XR chest 1V portable [id number] Stat Exams 11/24/21 21:59 Completed NM farnaz perf SPECT r/s* [id number] Routine Nuc Med 11/27/21 09:09 Completed CV. echo complete* [id number] Routine Ultrasound 11/25/21 01:34 Completed Pending at discharge Category Date Time Status Sestamibi Stress Test Request Routine Exams 11/26/21 09:09 Ordered Radiology Impressions Chest X-Ray 11/24/21 21:59 IMPRESSION: 1. Left lower lobe focal airspace opacification may reflect atelectasis versus infiltrate, CT could further evaluate this to exclude an underlying mass. 2. Emphysematous changes. LEXISCAN STRESS TEST PERFUSION FINDINGS ?There is a small sized perfusion defect noted in the apical wall that improves?on stress images. This is likely secondary to attenuation artifact. ?FUNCTIONAL RESULTS ? ? (calculated via Gated SPECT) ? Stress Image LV EF (%):? ? 67 ? Stress EDV (mL):55 ? TID:? 0.97 ? Stress ESV (mL):18 ?FUNCTIONAL FINDINGS: ?There is normal left ventricular systolic function. ?IMPRESSIONS ?1. Normal myocardial perfusion imaging. No evidence of ischemia. Attenuation?artifact is seen in the apical wall ?2. LV systolic function is normal ?Gage Moore MD ?(Electronically Signed) ?Final Date:? ? ? 27 November 2021 ? 09:51 Laboratory Results WBC 7.5 10^3/uL (4.0-10.0) 11/27/21 06:59 RBC 3.82 10^6/uL (4.1-5.3) L 11/27/21 06:59 Hgb 11.9 g/dL (11.5-15.3) 11/27/21 06:59 Hct 35.6 % (37.0-47.0) L 11/27/21 06:59 MCV 93.2 fl (81-99) 11/27/21 06:59 MCH 31.2 pg (28.0-34.0) 11/27/21 06:59 MCHC 33.4 g/dL (30.0-36.0) 11/27/21 06:59 RDW 13.2 % (12.1-15.1) 11/27/21 06:59 Plt Count 245 10^3/cmm (130-400) 11/27/21 06:59 MPV 11.6 fL (7.4-10.4) H 11/27/21 06:59 Neut % (Auto) 61.7 % 11/27/21 06:59 Lymph % (Auto) 18.6 % 11/27/21 06:59 [place] % (Auto) 13.4 % 11/27/21 06:59 Eos % (Auto) 3.3 % 11/27/21 06:59 Baso % (Auto) 0.9 % 11/27/21 06:59 Neut # (Auto) 4.60 10^3/uL (1.8-7.7) 11/27/21 06:59 Lymph # (Auto) 1.4 10^3/uL (0.8-4.8) 11/27/21 06:59 [place] # (Auto) 1.0 10^3/uL (0.2-0.9) H 11/27/21 06:59 Eos # (Auto) 0.3 10^3/uL (0.0-0.8) 11/27/21 06:59 Baso # (Auto) 0.1 10^3/uL (0.0-0.1) 11/27/21 06:59 Nucleated RBC % (auto) 0 % 11/27/21 06:59 Nucleated RBCs # 0.0 /100WBC 11/27/21 06:59 D-Dimer 1.56 ug/mIFEU (0-0.59) H 11/25/21 01:45 Sodium 136 mmol/L (136-145) 11/27/21 06:59 Potassium 4.0 mmol/L (3.5-5.1) 11/27/21 06:59 Chloride 100 mmol/L (98-107) 11/27/21 06:59 Carbon Dioxide 24 mmol/L (22-29) 11/27/21 06:59 Anion Gap 16.0 (5-19) 11/27/21 06:59 BUN 10 mg/dL (8-23) 11/27/21 06:59 Creatinine 0.5 mg/dL (0.5-0.9) 11/27/21 06:59 GFR Calculation Not Reportable 11/27/21 06:59 Glucose 107 mg/dL (65-115) 11/27/21 06:59 Estimat Average Glucose 143 11/24/21 17:39 Hemoglobin A1c 6.6 % (4.0-6.0) H 11/24/21 17:39 Calculated Osmolality 282 mOsm/kg (285-295) L 11/27/21 06:59 Calcium 8.6 mg/dL (8.5-10.5) 11/27/21 06:59 Magnesium 1.9 mg/dL (1.7-2.3) 11/24/21 17:39 Total Bilirubin 0.3 mg/dL (0.15-1.2) 11/27/21 06:59 AST 13 U/L (0-32) 11/27/21 06:59 ALT 16 U/L (0-33) 11/27/21 06:59 Alkaline Phosphatase 70 IU/L (35-105) 11/27/21 06:59 Troponin T Baseline 15 ng/L (0-10) H 11/24/21 17:39 Troponin T 120 Minute 18.13 ng/L (0-10) H 11/24/21 20:00 Delta Troponin T 3.13 ABS# (0-10) 11/24/21 20:00 NT-Pro-B Natriuret Pep 1760 pg/mL (0-450) H 11/24/21 17:39 Total Protein 5.9 g/dL (6.6-8.7) L 11/27/21 06:59 Albumin 3.3 g/dL (3.5-5.2) L 11/27/21 06:59 Globulin 2.6 g/dL (1.3-4.6) 11/27/21 06:59 Triglycerides 76 mg/dL (0-150) 11/25/21 01:45 Cholesterol 138 mg/dL (0-200) 11/25/21 01:45 LDL Cholesterol, Calc 97 mg/dL (50-129) 11/25/21 01:45 Total VLDL Cholesterol 15 mg/dL (0-30) 11/25/21 01:45 HDL Cholesterol 26 mg/dL (60-100) L 11/25/21 01:45 Cholesterol/HDL Ratio 5.31 mg/dL (0.0-4.40) H 11/25/21 01:45 Lipase 17 U/L (13-60) 11/24/21 17:39 TSH 2.15 uIU/mL (0.27-4.20) 11/24/21 17:39 Free T4 1.37 ng/dL (0.82-1.77) 11/24/21 17:39 Urine Color Yellow (Yellow) 11/25/21 09:50 Urine Appearance Sl hazy (CLEAR) 11/25/21 09:50 Urine pH 6 (5-7) 11/25/21 09:50 Ur Specific [place] 1.020 (1.005-1.030) 11/25/21 09:50 Urine Protein Neg (Negative) 11/25/21 09:50 Urine Glucose (UA) Norm (Normal) 11/25/21 09:50 Urine Ketones Negative (Negative) 11/25/21 09:50 Urine Blood Neg (Negative) 11/25/21 09:50 Urine Nitrate Positive (Negative) H 11/25/21 09:50 Urine Bilirubin Neg (Negative) 11/25/21 09:50 Urine Urobilinogen Norm mg/dL (Negative) 11/25/21 09:50 Ur Leukocyte Esterase Negative (Negative) 11/25/21 09:50 Urine RBC 0-4 /hpf (0-2) H 11/25/21 09:50 Urine WBC 0-4 /hpf (0-5) H 11/25/21 09:50 Ur Squamous Epith Cells 0-4 /hpf (0-5) H 11/25/21 09:50 Amorphous Sediment Not Reportable 11/25/21 09:50 Urine Bacteria 4+ /hpf (NONE) H 11/25/21 09:50 Salicylates < 0.3 mg/dL (3-10) L 11/24/21 17:39 Urine Opiates Screen Negative ng/mL (Negative) 11/25/21 09:50 Acetaminophen < 5.0 ug/mL (10-30) L 11/24/21 17:39 Ur Barbiturates Screen Negative ng/mL (Negative) 11/25/21 09:50 Ur Phencyclidine Scrn Negative ng/mL (Negative) 11/25/21 09:50 Ur Amphetamines Screen Negative ng/mL (Negative) 11/25/21 09:50 U Benzodiazepines Scrn Positive ng/mL (Negative) H 11/25/21 09:50 Urine Cocaine Screen Negative ng/mL (Negative) 11/25/21 09:50 U Marijuana (THC) Screen Positive ng/mL (Negative) H 11/25/21 09:50 Vitals Last Vital Signs Temp 98.1 F 11/27/21 11:20 Pulse 118 H 11/27/21 11:20 Resp 18 11/27/21 11:20 BP 91/59 11/27/21 11:20 Pulse Ox 96 11/27/21 11:20 Discharge Plan Discharge Patient Disposition: Home Condition: Stable Prescriptions: New levofloxacin 500 mg Tablet 500 mg PO DAILY@0600 Qty: 3 0RF Cardizem CD 300 mg capsule,extended release 24hr 300 mg PO DAILY Qty: 30 0RF Eliquis 5 mg tablet 5 mg PO BID Qty: 60 0RF escitalopram oxalate 10 mg Tablet 10 mg PO DAILY Qty: 30 0RF Ambien 5 mg tablet 5 mg PO .once a day PRN (Reason: insomnia) Qty: 14 0RF Continued rzzbxeouyyih-wsoujdyd-xtoikv Tablet 1 tab PO DAILY 0RF Discharge Orders: Discharge Order (Routine); Ordered 11/27/21 Ordered By: Prasanna Duran Referrals: Avni Mejia MD [Physician] - 12/11/21 9:30 am [facility] [place] - [place] [Staff Physician] - 2 weeks Discharge Diet: Advance as tolerated Discharge Activity: Increase activity as tolerated Patient Instructions: Diltiazem (By mouth), Zolpidem (By mouth), Levofloxacin (By mouth), Escitalopram (By mouth), Apixaban (By mouth), Insomnia (ED), Opioid Safety Activity Restrictions/Additional Instructions: Is follow-up with her primary care provider within next 2 weeks. You should follow-up with behavioral health clinic within next 2 weeks for continuation of your anxiety and sleep medications. You will be on Cardizem which is the medication to control your heart rate 1 time daily. Eliquis is a blood thinner which you should take morning evening daily. Discharge Attestations Time Spent in Discharge Care*: greater than 30 min Specific Discharge Activities: educating patient, educating and/or supporting family/caregiver, discussing with pcp/other providers, discussing with case specialist/social workers/dc planners, documenting/other paperwork and evaluating patient/reviewing data Status at Discharge: Cognitive status at discharge: cognitively intact, Behavioral status at discharge: cooperative, Functional status at discharge: independent ambulation, Overall status at discharge: patient is back to baseline Quality Metrics Clinical Quality Measures [ No reported AMI, CVA or VTE this stay] Coding Level of Care Code Acute Chg DC note History Comprehensive Exam Comprehensive Medical Decision Making High Complexity Diagnoses Atrial fibrillation with RVR I48.91 Cardiomyopathy I42.9 Systolic heart failure I50.20 Insomnia G47.00 Anxiety F41.9
[2021-11-27 12:51] VITALS: BP 91/59; PULSE 118; RESP 18; TEMP 36.7; O2SAT 96
--- NOTE | 2021-11-27 13:19 | PC.NURSE ---
Discharge Note Patient discharged to home accompanied by spouse. Discharge instructions reviewed with patient and/or insurance sales representative. Mobile pharmacy medications and/or prescriptions provided. Belongings/home medications returned.
--- NOTE | 2021-11-27 15:18 | PC.SOCIAL ---
IMM UPDATED IMM dated and initialed and copy given to patient
== END 2021-11-27 13:20 | disposition home or self-care (01) | DRG 309 ==
LOC: ER 19:28 → ICU 20:30 → MEDSURG 11-26 22:33
PROVIDERS: Admitting Provider Student in an Organized Health Care Education/Training Program; Emergency Provider Emergency Medicine; Visit Provider Student in an Organized Health Care Education/Training Program
DX: I48.91 Unspecified atrial fibrillation (principal); I50.22 Chronic systolic (congestive) heart failure; R45.851 Suicidal ideations; G47.00 Insomnia, unspecified; Z87.891 Personal history of nicotine dependence; Z87.440 Personal history of urinary (tract) infections; F41.9 Anxiety disorder, unspecified; I42.9 Cardiomyopathy, unspecified; I08.3 Combined rheumatic disorders of mitral, aortic and tricuspid valves
CPT/HCPCS: 36415; 71045; 78452; 80053; 80061; 80306; 80307; 81001; 83036; 83690; 83735; 83880; 84439; 84443; 84484; 85025; 85378; 93005; 93017; 93306; 96361; 96372; 96374; 96375; 99291; A9500; J0153; J1650; J2060; J2405; J2785; J3490; J7030

== ENCOUNTER 2022-06-19 16:47 | Emergency (ER) | payer MEDICARE, SELFPAY ==
--- NOTE | 2022-06-19 16:55 | CTR_ITS ---
PROCEDURE INFORMATION: Exam: CT Head Without Contrast Exam date and time: 06/19/2022 4:49 PM Age: 81 years old Clinical indication: Stroke-like symptoms; Speech disturbance; Lt upper extremity weakness; Additional info: Symptoms of acute stroke TECHNIQUE: Imaging protocol: Computed tomography of the head without contrast. Radiation optimization: All CT scans at this facility use at least one of these dose optimization techniques: automated exposure control; mA and/or kV adjustment per patient size (includes targeted exams where dose is matched to clinical indication); or iterative reconstruction. Other protocol: This patient has received [address] and 0 known cardiac nuclear medicine studies in the 12 months prior to the current study. Other technique: STROKE PROTOCOL was implemented. COMPARISON: No relevant prior studies available. RADIATION DOSE METRICS: Total DLP (mGy-cm): 874.78 FINDINGS: Brain: There is moderate cortical atrophy. Low-density changes in the white matter are consistent with nonspecific small vessel chronic ischemic change. There is no intracranial hemorrhage or edema. There is a 10 x 17 mm sized cystic lesion in the left basal ganglia region containing a mural calcification. This is of uncertain significance but could represent old lacunar infarct or perhaps cyst from neurocysticercosis. Correlation with clinical findings is suggested. Follow-up MR imaging might be helpful. This is not likely related to the patient's acute symptoms. Cerebral ventricles: No ventriculomegaly. Paranasal sinuses: Visualized sinuses are unremarkable. No fluid levels. Mastoid air cells: Visualized mastoid air cells are well aerated. Bones/joints: Unremarkable. No acute fracture. Soft tissues: Unremarkable. CT/CT head thrombolytic [id number] IMPRESSION: 1. 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 2. No evidence of acute infarction or intracranial hemorrhage ASSESSMENT: ASPECTS ([place] Stroke Program Early CT Score) is 10.
--- NOTE | 2022-06-19 16:55 | ECG_ITS ---
[facility] Test Date: 2022-06-19 Pat Name: Turner Badillo Department: Room: Gender: Female Travel Registered Nurse Pacu: : 1940 Requested By: Rodrigo Bingham Order Number: [id number] Nelly MD: Gage Moore M.D. Measurements Intervals [place] Rate: 155 P: 0 DE: 0 QRS: 89 QRSD: 82 T: 270 QT: 252 QTc: 405 Interpretive Statements ATRIAL FIBRILLATION WITH RAPID VENTRICULAR RESPONSE SEPTAL MYOCARDIAL INFARCTION , PROBABLY OLD [40+ ms Q WAVE IN V1/V2] MODERATE T-WAVE ABNORMALITY, CONSIDER LATERAL ISCHEMIA [-0.1+ mV T-WAVE IN I/aVL/V5/V6] MODERATE T-WAVE ABNORMALITY, CONSIDER INFERIOR ISCHEMIA [-0.1+ mV T-WAVE IN II/aVF] Compared to ECG 11/24/2021 20:49:59 T-wave abnormality now present Possible ischemia now present Indeterminate axis no longer present Incomplete right bundle-branch block no longer present Myocardial infarct finding still present Electronically Signed On 06-19-2022 23:25:10 NUT GRINDER by Gage Moore M.D. [email or web address]
[2022-06-19 17:01] VITALS: BP 132/76; PULSE 160; RESP 18; TEMP 36.4; O2SAT 91; BMI 17.4
--- NOTE | 2022-06-19 17:09 | ED_ITS ---
HPI - Neuro Symptoms/Deficit General: Chief Complaint: Neuro Symptoms/Deficit Stated Complaint: STROKE ALERT Time Seen by Provider: 06/19/22 16:48 History of Present Illness: This 81-year-old female with a history of A. fib was brought in by EMS with aphasia and left-sided weakness. stated that patient went down around 3:30 PM and since then has been unable to speak. At baseline, patient is able to talk and hold conversation. Here in the ER, she has left hemineglect, pronounced left facial palsy and aphasia. She is able to move all extremities and follow commands. She has a history of A. fib and is on Eliquis among other medications. or any other family members are not here to provide any additional history. She was immediately taken to the radiology department for CT and arrival. Stroke protocol was activated. Associated symptoms: Deny chest pain or headache(s) Review of Systems General: Reports: ROS unobtainable due to mental status Const: Denies: chills, body aches or change in appetite Eyes: Denies: change in vision or eye discharge ENMT: Denies: throat pain, dental pain or nasal discharge Card: Denies: chest pain or lightheadedness : Denies: dysuria Musc: Denies: neck pain or back pain Neuro: Denies: headache(s) or weakness in extremities Psych: Denies: depression Scott/Lymph: Denies: easy bruising All/Imm: Denies: urticaria, tongue swelling or facial swelling PFSH ED PFSH: Medical History (Updated 06/19/22 @ 18:50 by Rodrigo Chavez MD) Anterior chest wall pain Anxiety Atrial fibrillation with RVR Cardiomyopathy COPD (chronic obstructive pulmonary disease) case management patient Former smoker Insomnia disorder Muscle strain of scapular region Systolic heart failure Urinary tract infection Surgical History (Updated 01/08/22 @ 10:50 by Avni Mejia MD) History of tonsillectomy Family History (Updated 01/08/22 @ 10:24 by Nydia Rm LPN) Brother Cancer lymphoma Mother Dementia Diabetes Father Stroke Denies family history of CAD (coronary artery disease) Clotting disorder Hyperlipidemia Chronic kidney disease (CKD) Anesthesia complication Bleeding disorder Lung disease Hypertension Social History (Updated 01/08/22 @ 10:25 by Nydia Rm LPN) Smoking and tobacco status: never smoked Alcohol intake: never Adopted: No Caregiver/support person: No Lives independently: Yes Household members: spouse Marital status: Number of children: 2 Highest education level completed: Some College, No Degree service: No Current occupational status: retired and disabled Pets and animals: Yes Pets & animals: dog(s) History of recent travel: No Current gender identity: Female Elaina/Yarsani: Judaism Physical Exam Const: COMMON NORMALS: no acute distress and no limitations HENMT: COMMON NORMALS: normocephalic HEAD & SCALP: normocephalic Eye: COMMON NORMALS: EOMs intact bilaterally Neck/C-Spine: COMMON NORMALS: full ROM and supple Chest: COMMONS NORMALS: normal inspection of the chest Resp: COMMON NORMALS: normal respiratory effort, No retractions, No use of accessory muscles and clear to auscultation bilaterally AUSCULTATION: clear to auscultation bilaterally Cardio: COMMON NORMALS: regular rate, regular rhythm and No murmurs present (Cardio) RATE: regular rate RHYTHM: regular rhythm GI: COMMON NORMALS: Normal to inspection, nondistended, normoactive bowel sounds present and non-tender : COMMON NORMALS: Yes no CVA tenderness BLADDER/KIDNEY EXAM: Yes no CVA tenderness Back/Pelvis: COMMON NORMALS: no CVA tenderness and no thoracic nor lumbar tenderness Extremity: GENERAL: Yes normal exam except as noted Neuro: GERMAN COMA SCALE: document GCS findings [place] coma scale eye opening: Spontaneous German coma scale verbal response: Sounds German coma scale motor response: Obey commands German coma scale total score: 12 SPEECH: expressive aphasia MONOFILAMENT EXAM PERFORMED: Yes OTHER: Left hemineglect, left facial droop, able to raise all 4 extremities off the bed and hold them for 5/10 seconds, expressive aphasia, able to follow commands. NIH stroke scale of at least 12. Psych: COMMON NORMALS: mental status grossly normal and cooperative Course Reevaluation(s): Reevaluation #1: Stroke protocol activated immediately on arrival. Consultations: Consultation #1: Unfortunately, history at this time is very scant. There is no family member to provide any additional history and what exactly the means by went down is not clear. Dr. Tamayo the telemetry neurologist does not feel that patient is a candidate for thrombolytics at this time. She wants a CTA to be obtained and additional history obtained from family members if possible. In the mean time, she will evaluate patient by video Time: 17:37 Consultation #2: CTA result available. He shows a short segment occlusion at the terminal M1 branch of the right middle cerebral artery. I discussed these findings with Dr. Tamayo who accepted patient in transfer. She recommends ER to ER transfer by the fastest route. At this time, patient's is in the ER. He stated that after they had lunch around 2:30 PM, patient laid down in bed and closed her eyes. Then he not iced that patient stopped breathing for few seconds. So, he shook patient to get her to wake up. That is when he noticed that patient was altered and not responding to him. At baseline, patient holds conversation, she is able to get around without support and has no memory deficits. Time: 18:48 Vital Signs: Vital signs: Vital Signs Temperature 97.5 F L 06/19/22 17:01 Pulse Rate 120 H 06/19/22 19:06 Respiratory Rate 18 06/19/22 17:01 Blood Pressure 125/94 06/19/22 19:06 Pulse Oximetry 94 06/19/22 19:06 Oxygen Delivery Me thod 06/19/22 19:06 Oxygen Flow Rate 2 06/19/22 19:06 MDM - Neuro Symptoms/Deficit Medical Decision Making Medical decision making: Patient was brought in for evaluation of neurodeficits which was confirmed on CT and MRI to be a CVA. We have no neurologist on-call. In addition, patient has short segment occlusion in the right middle cerebral artery. She will be transferred to [facility] for possible intervention. Lab Data 06/19/22 17:15 06/19/22 17:[address] 06/19/22 16:55 IMPRESSION: 1. 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 2. No evidence of acute infarction or intracranial hemorrhage ASSESSMENT: ASPECTS ([place] Stroke Program Early CT Score) is 10. Head/Neck CTA 06/19/22 17:33 IMPRESSION: Acute short segment occlusion involving the distal right M1 middle cerebral artery. IMPRESSION: There is no significant stenosis in the carotid or vertebral arteries of the neck. REFERENCES: NASCET CRITERIA. The degree of stenosis in the cervical segment of the internal carotid artery is based on NASCET criteria. Normal is no stenosis. Mild is less than 50% stenosis. Moderate is 50-69% stenosis. Severe is 70% to 99% stenosis. Total occlusion is no detectable patent lumen. Laboratory Results WBC 10.6 10^3/uL (4.0-10.0) H 06/19/22 17:15 RBC 3.58 10^6/uL (4.1-5.3) L 06/19/22 17:15 Hgb 11.9 g/dL (11.5-15.3) 06/19/22 17:15 Hct 37.2 % (37.0-47.0) 06/19/22 17:15 MCV 103.9 fl (81-99) H 06/19/22 17:15 MCH 33.2 pg (28.0-34.0) 06/19/22 17:15 MCHC 32.0 g/dL (30.0-36.0) 06/19/22 17:15 RDW 13.7 % (12.1-15.1) 06/19/22 17:15 Plt Count 339 10^3/cmm (130-400) 06/19/22 17:15 MPV 11.3 fL (7.4-10.4) H 06/19/22 17:15 Neut % (Auto) 65.3 % 06/19/22 17:15 Lymph % (Auto) 11.8 % 06/19/22 17:15 Lucas % (Auto) 15.4 % 06/19/22 17:15 Eos % (Auto) 2.3 % 06/19/22 17:15 Baso % (Auto) 0.5 % 06/19/22 17:15 Neut # (Auto) 6.91 10^3/uL (1.8-7.7) 06/19/22 17:15 Lymph # (Auto) 1.3 10^3/uL (0.8-4.8) 06/19/22 17:15 Lucas # (Auto) 1.6 10^3/uL (0.2-0.9) H 06/19/22 17:15 Eos # (Auto) 0.2 10^3/uL (0.0-0.8) 06/19/22 17:15 Baso # (Auto) 0.1 10^3/uL (0.0-0.1) 06/19/22 17:15 Nucleated RBC % (auto) 0 % 06/19/22 17:15 Nucleated RBCs # 0.0 /100WBC 06/19/22 17:15 PT 14.60 SECONDS (12.1-14.9) 06/19/22 17:15 INR 1.10 (0.8-1.2) 06/19/22 17:15 APTT 25.8 SECONDS (23.9-36.7) 06/19/22 17:15 Sodium 136 mmol/L (136-145) 06/19/22 17:15 Potassium 4.8 mmol/L (3.5-5.1) 06/19/22 17:15 Chloride 95 mmol/L (98-107) L 06/19/22 17:15 Carbon Dioxide 30 mmol/L (22-29) H 06/19/22 17:15 Anion Gap 15.8 (5-19) 06/19/22 17:15 BUN 19 mg/dL (8-23) 06/19/22 17:15 Creatinine 0.4 mg/dL (0.5-0.9) L 06/19/22 17:15 GFR Calculation Not Reportable 06/19/22 17:15 Glucose 131 mg/dL (65-115) H 06/19/22 17:15 POC Glucose 122 mg/dL (70-110) H 06/19/22 17:35 Calculated Osmolality 286 mOsm/kg (285-295) 06/19/22 17:15 Calcium 9.6 mg/dL (8.5-10.5) 06/19/22 17:15 Total Bilirubin 0.4 mg/dL (0.15-1.2) 06/19/22 17:15 AST 21 U/L (0-32) 06/19/22 17:15 ALT 55 U/L (0-33) H 06/19/22 17:15 Alkaline Phosphatase 145 U/L (35-105) H 06/19/22 17:15 Total Protein 6.7 g/dL (6.6-8.7) 06/19/22 17:15 Albumin 3.7 g/dL (3.5-5.2) 06/19/22 17:15 Globulin 3.0 g/dL (1.3-4.6) 06/19/22 17:15 Discharge Plan Discharge Patient Disposition: Xfer Short-Term Hosp 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
[2022-06-19 17:32] LABS: Basophils # 0.1 10^3/uL (0.0-0.1); Basophils % 0.5 %; Eosinophils # 0.2 10^3/uL (0.0-0.8); Eosinophils % 2.3 %; Hematocrit 37.2 % (37.0-47.0); Hemoglobin 11.9 g/dL (11.5-15.3); Lymphocytes # 1.3 10^3/uL (0.8-4.8); Lymphocytes % 11.8 %; Mean Corpuscular Hemoglobin 33.2 pg (28.0-34.0); Mean Corpuscular Volume 103.9 fl (81-99); Mean Platelet Volume 11.3 fL (7.4-10.4); Monocytes # 1.6 10^3/uL (0.2-0.9); Monocytes % 15.4 %; Neutrophils # 6.91 10^3/uL (1.8-7.7); Neutrophils % 65.3 %; Nucleated Red Blood Cells % 0 %; Platelet Count 339 10^3/cmm (130-400); Red Blood Count 3.58 10^6/uL (4.1-5.3); Red Cell Distribution Width 13.7 % (12.1-15.1); White Blood Count 10.6 10^3/uL (4.0-10.0)
--- NOTE | 2022-06-19 17:33 | CTR_ITS ---
PROCEDURE INFORMATION: Exam: CTA Head With Contrast, Arteriography Exam date and time: 06/19/2022 5:43 PM Age: 81 years old Clinical indication: Speech disturbance; Aphasia; Prior surgery; Surgery date: 6+ months; Surgery type: Tonsillectomy; Patient HX: Limited HX due to PT condition, PT not verbal at this time, came to er with questionable stroke; Additional info: Suspected CVA TECHNIQUE: Imaging protocol: Computed tomographic angiography of the head with contrast. Exam focused on the arteries. 3D rendering (Not supervised by radiologist): MIP and/or 3D reconstructed images were created by the technologist. Radiation optimization: All CT scans at this facility use at least one of these dose optimization techniques: automated exposure control; mA and/or kV adjustment per patient size (includes targeted exams where dose is matched to clinical indication); or iterative reconstruction. Contrast material: OMNIPAQUE 350; Contrast volume: 100 ml; Contrast route: INTRA-ARTERIAL (ARTERIAL); Other protocol: This patient has received 2 known CTs and 0 known cardiac nuclear medicine studies in the 12 months prior to the current study. COMPARISON: CT head thrombolytic [id number] 06/19/2022 4:49 PM RADIATION DOSE METRICS: Total DLP (mGy-cm): 386.42 FINDINGS: ANTERIOR CIRCULATION: Right internal carotid artery: Intracranial segment is patent with no significant stenosis. No aneurysm. Right middle cerebral artery: There is a focal clot or short segment occlusion in the distal right M1 middle cerebral artery at the level of the bifurcation with occlusion of the inferior division of the right middle cerebral artery which fills distally via collaterals. Right anterior cerebral artery: No occlusion or significant stenosis. No aneurysm. Left internal carotid artery: Intracranial segment is patent with no significant stenosis. No aneurysm. Left middle cerebral artery: No occlusion or significant stenosis. No aneurysm. Left anterior cerebral artery: No occlusion or significant stenosis. No aneurysm. POSTERIOR CIRCULATION: Right vertebral artery: Right vertebral artery is dominant. No occlusion or stenosis. No aneurysm. Left vertebral artery: No occlusion or significant stenosis. No aneurysm. Basilar artery: No occlusion or significant stenosis. No aneurysm. Right posterior cerebral artery: There is origin of the right posterior cerebral artery. Right P1 posterior cerebral artery segment is small probably on a congenital basis. There is some irregularity of the segment which could represent some atherosclerotic change. Left posterior cerebral artery: No occlusion or significant stenosis. No aneurysm. Brain: Left basal ganglia region cyst with calcification. No acute infarct identified. Cerebral ventricles: No ventriculomegaly. Bones/joints: Unremarkable. No acute fracture. Soft tissues: Unremarkable. COMMENTS: THIS REPORT CONTAINS FINDINGS THAT MAY BE CRITICAL TO PATIENT CARE. The findings were verbally communicated via telephone conference with BEN PICKARD at 6:20 PM BOOKSTORE CLERK on 06/19/2022. The findings were acknowledged and understood. PROCEDURE INFORMATION: Exam: CTA Neck With Contrast Exam date and time: 06/19/2022 5:43 PM Age: 81 years old Clinical indication: Speech disturbance; Aphasia; Prior surgery; Surgery date: 6+ months; Surgery type: Tonsillectomy; Patient HX: Limited HX due to PT condition, PT not verbal at this time, came to er with questionable stroke; Additional info: Suspected CVA TECHNIQUE: Imaging protocol: Computed tomographic angiography of the neck with contrast. 3D rendering (Not supervised by radiologist): MIP and/or 3D reconstructed images were created by the technologist. Radiation optimization: All CT scans at this facility use at least one of these dose optimization techniques: automated exposure control; mA and/or kV adjustment per patient size (includes targeted exams where dose is matched to clinical indication); or iterative reconstruction. Contrast material: OMNIPAQUE 350; Contrast volume: 100 ml; Contrast route: INTRA-ARTERIAL (ARTERIAL); Other protocol: This patient has received 2 known CTs and 0 known cardiac nuclear medicine studies in the 12 months prior to the current study. COMPARISON: CT head thrombolytic [id number] 06/19/2022 4:49 PM RADIATION DOSE METRICS: Total DLP (mGy-cm): 386.42 FINDINGS: Right common carotid artery: There is some calcified noncalcified atherosclerotic plaque in the right carotid bulb without stenosis as measured according to the NASCET criteria. Right internal carotid artery: No stenosis of the extracranial segment. No dissection or occlusion. Right external carotid artery: No occlusion or stenosis of the origin. Left common carotid artery: No stenosis. No dissection or occlusion. Left internal carotid artery: No stenosis of the extracranial segment. No dissection or occlusion. Left external carotid artery: No occlusion or stenosis of the origin. Right vertebral artery: No stenosis. No dissection or occlusion. Left vertebral artery: No stenosis. No dissection or occlusion. Thyroid: There is nodular enlargement of the lower pole of the left lobe of the thyroid. Further evaluation with non urgent thyroid ultrasound recommended if not previously done elsewhere. Soft tissues: Normal. No significant soft tissue swelling. Bones/joints: No acute fracture. Esophagus: There is a large amount of food debris within the visualized esophagus which could be due to severe gastroesophageal reflux or vomiting or perhaps distal esophageal obstruction. This finding is not completely evaluated on this exam. CT/CT angio headneck* [id number] IMPRESSION: Acute short segment occlusion involving the distal right M1 middle cerebral artery. IMPRESSION: There is no significant stenosis in the carotid or vertebral arteries of the neck. REFERENCES: NASCET CRITERIA. The degree of stenosis in the cervical segment of the internal carotid artery is based on NASCET criteria. Normal is no stenosis. Mild is less than 50% stenosis. Moderate is 50-69% stenosis. Severe is 70% to 99% stenosis. Total occlusion is no detectable patent lumen.
[2022-06-19 17:38] LABS: Glucose Point of Care 122 mg/dL (70-110)
[2022-06-19 17:45] LABS: Partial Thromboplastin Time 25.8 SECONDS (23.9-36.7)
[2022-06-19] MEDS: iohexol 350 mg/mL 500 mL Btl (per mL) IV (17:45)
[2022-06-19 18:08] LABS: Alanine Aminotransferase 55 U/L (0-33); Albumin Level 3.7 g/dL (3.5-5.2); Alkaline Phosphatase 145 U/L (35-105); Anion Gap 15.8 (5-19); Aspartate Amino Transferase 21 U/L (0-32); Blood Urea Nitrogen 19 mg/dL (8-23); Calcium 9.6 mg/dL (8.5-10.5); Carbon Dioxide 30 mmol/L (22-29); Chloride 95 mmol/L (98-107); Glucose 131 mg/dL (65-115); Osmolality Calculated 286 mOsm/kg (285-295); Potassium 4.8 mmol/L (3.5-5.1); Sodium 136 mmol/L (136-145); Total Bilirubin 0.4 mg/dL (0.15-1.2); Total Protein 6.7 g/dL (6.6-8.7)
[2022-06-19] MEDS: dilTIAZem 5 mg/mL SDV 5 mL 20 MG IVP (19:04)
[2022-06-19 19:06] VITALS: BP 125/94; PULSE 120; O2SAT 94
== END 2022-06-19 19:34 | disposition short-term general hospital (02) ==
PROVIDERS: Emergency Provider Family Medicine; PCP Family Medicine Adult Medicine
DX: I63.6 Cerebral infarction due to cerebral venous thrombosis, nonpyogenic (principal); I50.20 Unspecified systolic (congestive) heart failure
CPT/HCPCS: 36416; 70450; 70496; 70498; 80053; 82962; 85025; 85610; 85730; 93005; 96374; 99285; J3490; Q9967

== ENCOUNTER 2022-07-10 09:39 | Emergency (ER) | payer MEDICARE, SELFPAY ==
[2022-07-10 09:49] VITALS: BP 111/82; PULSE 64; RESP 20; TEMP 35.8; BMI 14.5
--- NOTE | 2022-07-10 10:01 | PC.NURSE ---
unable to obtain oxygen sat in triage due to cold hands. radial pulse counted by palpation
--- NOTE | 2022-07-10 11:11 | ED_ITS ---
HPI - General Adult General: Chief complaint: General Medical Stated complaint: feeding tube pulled out Time Seen by Provider: 07/10/22 10:21 Source: patient and family Mode of arrival: wheelchair Limitations: no limitations History of Present Illness: Patient is an 81-year-old female presents to ED today along with her and daughter with concerns that patient dislodged her NG tube. Patient was seen at our facility approximately 3 weeks ago due to strokelike symptoms. According to family she was flown to [facility]. They state while there patient underwent imaging which (according to family) showed some type of nonoperable/terminal mediastinal mass that was compressing her esophagus thus the need to place the NG tube. Family states they have not had any issues with the tube. They state patient accidentally dislodged it while changing her clothes. Onset (ago): hour(s) Relieving factors: none Exacerbating factors: none Associated symptoms: Reports no associated symptoms; Deny chest pain, dyspnea or malaise Treatments prior to arrival: none Review of Systems Const: Denies: fever(s), chills, body aches, fatigue or malaise Card: Denies: chest pain Resp: Denies: dyspnea GI: Denies: abdominal pain PFSH ED PFSH: Medical History Anterior chest wall pain Anxiety Atrial fibrillation with RVR Cardiomyopathy COPD (chronic obstructive pulmonary disease) case management patient Former smoker Insomnia disorder Muscle strain of scapular region Systolic heart failure Urinary tract infection Surgical History History of tonsillectomy Family History Brother Cancer lymphoma Mother Dementia Diabetes Father Stroke Denies family history of CAD (coronary artery disease) Clotting disorder Hyperlipidemia Chronic kidney disease (CKD) Anesthesia complication Bleeding disorder Lung disease Hypertension Social History Smoking and tobacco status: never smoked Alcohol intake: never Adopted: No Caregiver/support person: No Lives independently: Yes Household members: spouse Marital status: Number of children: 2 Highest education level completed: Some College, No Degree service: No Current occupational status: retired and disabled Pets and animals: Yes Pets & animals: dog(s) Current gender identity: Female Elaina/Synagogue: Evangelical Physical Exam Const: COMMON NORMALS: no acute distress, average body habitus, no limitations, alert and well nourished GENERAL APPEARANCE: cooperative HENMT: COMMON NORMALS: normocephalic and atraumatic HEAD & SCALP: normal to inspection, normocephalic and atraumatic Neck/C-Spine: GENERAL: Yes normal visual inspection Chest: COMMONS NORMALS: normal inspection of the chest and normal palpation of entire chest wall Resp: COMMON NORMALS: normal respiratory effort and clear to auscultation bilaterally AUSCULTATION: clear to auscultation bilaterally Cardio: COMMON NORMALS: regular rate and regular rhythm RATE: regular rate RHYTHM: regular rhythm GI: COMMON NORMALS: Normal to inspection, nondistended, normoactive bowel sounds present, Soft to palpation and non-tender PALPATION: Yes Soft to palpation OTHER: NG tube present Neuro: SENSORIUM/ORIENTATION: Yes alert Course Vital Signs: Vital signs: Vital Signs Temperature 96.4 F L 07/10/22 09:49 Pulse Rate 64 07/10/22 09:49 Respiratory Rate 20 H 07/10/22 09:49 Blood Pressure 111/82 07/10/22 09:49 [facility] - General Adult Medical Decision Making Patient here after she accidentally pulled on her NG tube while she was changing clothes. Options were to pull NG tube and place a new tube or try to use existing tube and reinsert. Fear was if we pulled her existing tube we may not be able to get a new tube as I do not have access to patient's CT records and did not know the degree of esophageal compression from her mediastinal mass. We shot initial CXR which did show NG tube in esophagus. We advanced existing NG tube and shot CXR which showed placement at GE junction with recommendations for continued advancement. This was completed and unfortunately tube coiled. It was withdrawn and re-advanced and in good gastric placement but it kept coiling in the back of her throat/mouth. Ultimately decision was made to just pull existing NG tube and start with a fresh tube. This was advanced without any difficulty whatsoever. RN aspirated gastric contents. CXR showing tube entering stomach. Patient is stable for DC. Of note her CXR did mention bilateral small pleural effusions and a left lower lobe atelectasis. 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 Daughter is aware of these findings and states they told her similar findings on her CT scan at [place]. She is currently on Vancomycin. Recommend she follow up with PCP/team at [place] as scheduled. Certainly we can see her through the ED for any acute issues that may arrise. Lab Data Radiology Impressions Chest X-Ray 07/10/22 15:41 IMPRESSION: 1. NG tube entering the stomach however the tip is a out of the [id number]. The side-port of the tube is probably in the fundus. Discharge Plan Discharge Patient Disposition: Home Clinical Impression: Migration of nasogastric tube, Encounter for nasogastric (NG) tube placement Condition: Stable Prescriptions: No Action Adult 50 Plus Probiotic 4 billion cell capsule 4,000 mmu cells PO DAILY Rx Instructions: administer with a meal polyethylene glycol 3350 [Miralax] 17 gram/dose powder 4 g PO DAILY acetaminophen 325 mg tablet 325 mg PO QID PRN (Reason: pain or fever) Qty: 100 0RF apixaban 2.5 mg tablet 2.5 mg PO BID Qty: 60 5RF diltiazem HCl 360 mg capsule,extended release 24hr 360 mg PO QAM Qty: 30 5RF albuterol sulfate 90 mcg/actuation HFA aerosol inhaler 2 puff inhalation Q6H PRN (Reason: shortness of breath or wheezing) Qty: 8.5 1RF tramadol 50 mg tablet 25 mg PO BID PRN (Reason: pain) Qty: 20 0RF baclofen 5 mg tablet 5 mg PO BID Qty: 20 0RF zolpidem 5 mg tablet 5 mg PO .qhs PRN (Reason: sleep) Qty: 30 2RF ibuprofen 400 mg tablet See Rx Instructions .ROUTE .COMPLEX Qty: 30 0RF Dose Instruction: TAKE 1 TABLET BY MOUTH EVERY 6 HOURS NEEDED FOR PAIN or fever Rx Instructions: TAKE 1 TABLET BY MOUTH EVERY 6 HOURS NEEDED FOR PAIN or fever escitalopram oxalate 10 mg tablet 10 mg PO DAILY Qty: 30 5RF djwqtosslleg-qakwzxin-tilshy Tablet 1 tab PO DAILY Discharge Orders: Discharge ED (Routine); Ordered 07/10/22 Ordered By: Magdalena Chapa Referrals: Avni Mejia MD [Primary Care Provider] - Coding Level of Care Code ED Mottler Operator for Viktoriag Hilary
--- NOTE | 2022-07-10 11:48 | XR_ITS ---
WS: [id number] Exam: XR chest 1V portable [id number] Date/Time of Exam: 07/10/2022 11:49 AM Reason For Exam: dislodged NG tube Comparison 11/24/2021. There is atelectasis and infiltrate in the left lower lobe and small left basal pleural effusion. Tin y right basal pleural effusion also noted. The lungs are hyperinflated. Chronic interstitial changes are noted in the right lung. Mild cardiac enlargement. There is leftward deviation of the mid trachea that may be secondary to a mass or lymphadenopathy.. Bony structures are intact. XR/XR chest 1V portable [id number] IMPRESSION: 1. Consolidating infiltrate and atelectasis in the left lower lobe and left bas al pleural effusion. 2. Mild cardiac enlargement. 3. Trace right basal pleural effusion. 4. Hyperinflation of may indicate COPD. Chronic interstitial changes throughout the right lung. 5. Mild leftward deviation of the lower trachea. This may represent mediastinal lymphadenopathy or mass.
--- NOTE | 2022-07-10 13:20 | XR_ITS ---
WS: [id number] Exam: XR chest 1V portable [id number] Date/Time of Exam: 07/10/2022 1:21 PM Reason For Exam: check NG tube placement Comparison with the most recent exam performed on the same day at 1155 hours. An NG tube has been placed and ends near the GE junction. The tube should be advanced another 10 to 1 2 cm for optimal position. The side-port of the tubes in the lower one third of the esophagus. There are no other changes in the overall appearance the chest since the last exam. XR/XR chest 1V portable [id number] IMPRESSION: 1. NG tube in the esophagus ending near the GE junction. The tube should be adv anced another 10 to 12 cm for optimal position. 2. The remainder of the chest is unchanged.
--- NOTE | 2022-07-10 14:08 | XRR_ITS ---
PROCEDURE INFORMATION: Exam: XR Chest Exam date and time: 07/10/2022 2:17 PM Age: 81 years old Clinical indication: Device placement; Ng tube; Additional info: Ng tube placement TECHNIQUE: Imaging protocol: Radiologic exam of the chest. Views: 1 view. COMPARISON: CR XR chest 1V portable [id number] 07/10/2022 1:26 PM FINDINGS: Tubes, catheters and devices: Incorrect position of feeding tube with catheter coiled within the upper esophagus, and distal tip at the level of the GE junction. Lungs: The lungs are somewhat hyperinflated, likely representing COPD. There are increased interstitial markings, in association with small left pleural effusion, which in the setting of cardiomegaly suggestive of pulmonary edema. Left basilar atelectasis opacity noted, which may represent atelectasis or pneumonia in the adequate clinical setting. No pneumothorax. Pleural spaces: See Lungs finding. Heart/Mediastinum: Stable cardiomediastinal silhouette. Bones/joints: Unremarkable. XR/XR chest 1V portable [id number] IMPRESSION: Imaging findings concerning for pulmonary edema in a background of COPD. Pneumonia should be excluded clinically.
--- NOTE | 2022-07-10 15:00 | XR_ITS ---
WS: [id number] PORTABLE CHEST HISTORY: NG tube COMPARISON: Study earlier the same day. Distal nasogastric tube in good position with tip extending into the stomach. Redundant loop of nasog astric tube persists over the cervical spine. Less redundancy of tubing as compared to the study nakul ier the same day. Hyperinflated lungs with mild pulmonary edema. Very small LEFT pleural effusion. No pneumothorax. The re is also a component of atelectasis in the LEFT lower lung field. Cardiac size: Mildly enlarged cardiac silhouette. Mediastinum/Aorta: Mild atherosclerosis aorta. No osseous abnormality seen. XR/XR chest 1V portable [id number] IMPRESSION: 1. Tip of the nasogastric tube is in the stomach. 2. Continued but improved redundancy of the nasogastric tube coiled in the reg ion of the cervical esophagus. 3. Small LEFT pleural effusion and minimal LEFT basilar atelectasis.
--- NOTE | 2022-07-10 15:41 | XR_ITS ---
WS: [id number] Exam: XR chest 1V portable [id number] Date/Time of Exam: 07/10/2022 3:41 PM Reason For Exam: ng tube placement Comparison with the most recent exam 3:01 PM on the same day. An NG tube extends below the diaphragm and enters the stomach. The tip is out of the [id number]. T he remainder of the chest is unchanged since the last exam. XR/XR chest 1V portable [id number] IMPRESSION: 1. NG tube entering the stomach however the tip is a out of the [id number]. The side-port of the tube is probably in the fundus.
[2022-07-10 16:24] VITALS: BP 122/79; PULSE 86; RESP 16; O2SAT 98
== END 2022-07-10 16:25 | disposition home or self-care (01) ==
PROVIDERS: Emergency Provider Physician Assistant; PCP Family Medicine Adult Medicine
DX: Z43.1 Encounter for attention to gastrostomy (principal); K94.29 Other complications of gastrostomy; J44.9 Chronic obstructive pulmonary disease, unspecified
CPT/HCPCS: 71045; 99283